=== PATIENT | male | born 1955 | race African-American/Black ===

== ENCOUNTER 2017-12-23 14:15 | Inpatient (IN) ==
[2017-12-23 18:10] LABS: Basophils % 0.6 % (0.0-0.8); Eosinophils # 0.1 10*3/uL (0.0-0.87); Eosinophils % 2.1 % (0.00-10.9); Hematocrit 20.6 VOL% (42.0-52.0); Hemoglobin 6.6 GM/DL (14.0-18.0); Immature Granulocytes % 0.5 %; Immature Granulocytes Absolute 0.03 #; Lymphocytes # 1.6 10*3/uL (1.4-4.0); Lymphocytes % 24.2 % (21.2-54.2); Mean Corpuscular Hemoglobin 28 PG (27-34); Mean Corpuscular Volume 85.8 FL (87-102); Mean Platelet Volume 12.8 FL (9.6-12.0); Monocytes # 0.4 10*3/uL (0.11-0.8); Monocytes % 6.6 % (1.7-12.7); Neutrophils # 4.3 10*3/uL (1.4-7.4); Platelet Count 161 T/CUMM (130-400); Red Cell Distribution Width 14.1 % (9.3-17.3); White Blood Count 6.6 T/CUMM (4-12)
[2017-12-23] MEDS ORDERED: ASPIRIN 325 MG TABLET ONE (18:19)
[2017-12-23] MEDS ORDERED: NITROGLYCERIN SL 0.4 MG TABLET SL ONE (18:27)
[2017-12-23] MEDS ORDERED: MORPHINE 2 MG/1 ML SYRINGE ONE (18:28)
[2017-12-23] MEDS ORDERED: METOPROLOL TARTRATE 5 MG/5 ML VIAL IV ONE (18:30)
[2017-12-23] MEDS ORDERED: ENOXAPARIN 100 MG/ML SYRINGE SUBCUT ONE (18:30)
[2017-12-23 18:43] LABS: Calcium 8.4 MG/DL (8.5-10.1); Osmolality,Calculated 296.5 MOS/KG (273-304); Potassium 3.6 MMOL/L (3.5-5.1)
[2017-12-23 18:48] LABS: CKMB % 1.8 %
[2017-12-23 18:50] LABS: Troponin I Only 1.69 NG/ML (0.00-0.045)
[2017-12-23] MEDS ORDERED: NICOTINE 21 MG/24 HR PATCH TRANSDERM PRN (19:23)
[2017-12-23] MEDS ORDERED: ALBUTEROL 2.5 MG/3 ML NEB RESP TX PRN (19:23)
[2017-12-23] MEDS ORDERED: ACETAMINOPHEN 325 MG TABLET PO PRN (19:23)
[2017-12-23] MEDS ORDERED: NITROGLYCERIN DRIP 50 MG/250 ML BOTTLE IV SCH (19:23)
[2017-12-23] MEDS ORDERED: SODIUM CHLORIDE 0.9% 1,000 ML IV PRN ×2 (19:23→19:39)
[2017-12-23] MEDS ORDERED: GLUCAGON 1 MG VIAL IM PRN (19:23)
[2017-12-23] MEDS ORDERED: ONDANSETRON 4 MG/2 ML VIAL IV PRN (19:23)
[2017-12-23] MEDS ORDERED: DEXTROSE 50% 25 GM/50 ML VIAL IV PRN (19:23)
[2017-12-23] MEDS ORDERED: DOCUSATE SODIUM 100 MG CAPSULE PO PRN (19:23)
[2017-12-23] MEDS ORDERED: FUROSEMIDE 40 MG/4 ML VIAL IV SCH (19:30)
[2017-12-23] MEDS ORDERED: NITROGLYCERIN SL 0.4 MG TABLET SL PRN (19:57)
[2017-12-23 20:07] LABS: INR 1.3; PT Patient Result 13.4 SECS
[2017-12-23] MEDS: LEVOFLOXACIN INJ 250 MG in PREMIX 1 EACH IV SCH (20:40)
[2017-12-23] MEDS: levETIRAcetam 250 MG TABLET PO SCH (20:41)
[2017-12-23] MEDS: METOPROLOL TARTRATE 25 MG TABLET PO SCH (20:41)
[2017-12-23 21:52] LABS: Apearance,Urine Slightly Hazy (Clear); Bacteria,Urine Occasional /HPF (Few); Bilirubin,Urine Negative (Negative); Blood, Urine Small mg/dL (Negative); Glucose,Urine (UA) 50 mg/dL (Negative); Ketones,Urine Negative (Negative); Nitrite,Urine Negative (Negative); Protein,Urine 100 MG/DL; RBC,Urine 6 /HPF (0-4); Squamous Epithelial Cell,Urine Occasional /HPF (0-10); Urine Color Yellow (Yellow); Urine Specific Gravity 1.009 (1.001-1.035); Urine Urobilinogen < 2.0 EU/DL (0.2-1.0); WBC,Urine 3 /HPF (0-6)
[2017-12-24] MEDS: INSULIN REGULAR 100 UNIT/ML SUBCUT SCH ×5 (01:10→22:18)
[2017-12-24] MEDS ORDERED: FUROSEMIDE 40 MG/4 ML VIAL IV ONE (01:30)
[2017-12-24] MEDS: hydrALAZINE 20 MG/1 ML VIAL IV PRN ×2 (01:53→07:36)
[2017-12-24] MEDS: MORPHINE 2 MG/1 ML SYRINGE IV PRN (02:50)
[2017-12-24 06:45] LABS: Basophils % 0.5 % (0.0-0.8); Eosinophils # 0.1 10*3/uL (0.0-0.87); Eosinophils % 1.8 % (0.00-10.9); Hematocrit 27.3 VOL% (42.0-52.0); Hemoglobin 8.8 GM/DL (14.0-18.0); Immature Granulocytes % 0.5 %; Immature Granulocytes Absolute 0.04 #; Lymphocytes # 1.5 10*3/uL (1.4-4.0); Lymphocytes % 19.6 % (21.2-54.2); Mean Corpuscular HGB Conc 32.2 GM/DL (32-36); Mean Corpuscular Hemoglobin 27 PG (27-34); Mean Corpuscular Volume 83.7 FL (87-102); Mean Platelet Volume 12.2 FL (9.6-12.0); Monocytes # 0.5 10*3/uL (0.11-0.8); Monocytes % 6.9 % (1.7-12.7); Neutrophils # 5.6 10*3/uL (1.4-7.4); Neutrophils % 70.7 % (38.7-73.9); Platelet Count 163 T/CUMM (130-400); Red Blood Count 3.26 MC/CUMM (3.8-5.5); Red Cell Distribution Width 14.6 % (9.3-17.3); White Blood Count 7.9 T/CUMM (4-12)
[2017-12-24 07:07] LABS: Lactic Acid 0.6 MMOL/L (0.4-2.0)
[2017-12-24 07:14] LABS: Albumin 3.3 G/DL (3.4-5.0); Bilirubin,Total 0.8 MG/DL (0.2-1.0); Calcium 8.4 MG/DL (8.5-10.1); Osmolality,Calculated 294.4 MOS/KG (273-304); Potassium 3.5 MMOL/L (3.5-5.1); Total Protein 6.8 G/DL (6.4-8.3)
[2017-12-24] MEDS: MULTIVITAMIN (CENTRUM) TABLET PO SCH (08:21)
[2017-12-24] MEDS: traZODone 50 MG TABLET PO SCH (08:21)
[2017-12-24] MEDS: METOPROLOL TARTRATE 25 MG TABLET PO SCH (08:21)
[2017-12-24] MEDS: BICALUTAMIDE 50 MG TABLET PO SCH (08:21)
[2017-12-24] MEDS: levETIRAcetam 250 MG TABLET PO SCH ×2 (08:21→22:17)
[2017-12-24] MEDS: FERROUS SULFATE 325 MG TABLET PO SCH (08:21)
[2017-12-24] MEDS: PANTOPRAZOLE 40 MG TABLET PO SCH (08:21)
[2017-12-24] MEDS: FUROSEMIDE 40 MG/4 ML VIAL IV SCH ×2 (08:24→17:10)
[2017-12-24] MEDS: ENOXAPARIN 80 MG/0.8 ML SYRINGE SUBCUT SCH ×2 (08:26→19:17)
[2017-12-24] MEDS ORDERED: PRAVASTATIN 40 MG TABLET PO SCH (09:00)
[2017-12-24] MEDS ORDERED: ASPIRIN 325 MG TABLET PO SCH (09:00)
[2017-12-24 09:01] LABS: CKMB % 1.8 %
[2017-12-24 09:07] LABS: Troponin I Only 1.91 NG/ML (0.00-0.045)
[2017-12-24] MEDS: ASPIRIN CHEW 81 MG TABLET PO SCH (09:19)
[2017-12-24] MEDS: ISOSORBIDE DINITRATE 20 MG TABLET PO SCH ×3 (09:28→22:17)
[2017-12-24] MEDS: ATORVASTATIN 80 MG TABLET PO SCH (09:28)
[2017-12-24] MEDS: CARVEDILOL 3.125 MG TABLET PO SCH ×2 (09:28→22:18)
[2017-12-24] MEDS: amLODIPine 5 MG TABLET PO SCH (09:28)
[2017-12-24] MEDS: SODIUM CHLORIDE 23.4% CONC INJ 38.5 MEQ, SODIUM BICARB INJ 100 MEQ in STERILE WATER INJ... IV SCH (17:10)
[2017-12-24 19:40] LABS: Apearance,Urine CLEAR (Clear); Bilirubin,Urine Negative (Negative); Blood, Urine Moderate mg/dL (Negative); Glucose,Urine (UA) Negative (Negative); Hyaline Casts,Urine 1 /LPF (0-3); Ketones,Urine Negative (Negative); Nitrite,Urine Negative (Negative); Protein,Urine Negative; RBC,Urine 36 /HPF (0-4); Urine Color Colorless (Yellow); Urine Specific Gravity 1.005 (1.001-1.035); Urine Urobilinogen < 2.0 EU/DL (0.2-1.0); WBC,Urine <1 /HPF (0-6)
[2017-12-25 06:13] LABS: Osmolality,Calculated 293.4 MOS/KG (273-304); Potassium 3.3 MMOL/L (3.5-5.1)
[2017-12-25 06:31] LABS: Basophils % 0.4 % (0.0-0.8); Eosinophils # 0.2 10*3/uL (0.0-0.87); Eosinophils % 2.3 % (0.00-10.9); Hematocrit 26.2 VOL% (42.0-52.0); Hemoglobin 8.5 GM/DL (14.0-18.0); Immature Granulocytes % 0.4 %; Immature Granulocytes Absolute 0.03 #; Lymphocytes # 1.6 10*3/uL (1.4-4.0); Lymphocytes % 21.4 % (21.2-54.2); Mean Corpuscular HGB Conc 32.4 GM/DL (32-36); Mean Corpuscular Hemoglobin 28 PG (27-34); Mean Corpuscular Volume 86.2 FL (87-102); Mean Platelet Volume 12.8 FL (9.6-12.0); Monocytes # 0.5 10*3/uL (0.11-0.8); Monocytes % 6.9 % (1.7-12.7); Neutrophils % 68.6 % (38.7-73.9); Platelet Count 161 T/CUMM (130-400); Red Blood Count 3.04 MC/CUMM (3.8-5.5); Red Cell Distribution Width 14.7 % (9.3-17.3); White Blood Count 7.2 T/CUMM (4-12)
[2017-12-25] MEDS: INSULIN REGULAR 100 UNIT/ML SUBCUT SCH ×4 (08:48→21:34)
[2017-12-25] MEDS: ISOSORBIDE DINITRATE 20 MG TABLET PO SCH ×3 (10:01→21:33)
[2017-12-25] MEDS: PANTOPRAZOLE 40 MG TABLET PO SCH (10:01)
[2017-12-25] MEDS: FERROUS SULFATE 325 MG TABLET PO SCH (10:02)
[2017-12-25] MEDS: amLODIPine 5 MG TABLET PO SCH (10:02)
[2017-12-25] MEDS: ASPIRIN CHEW 81 MG TABLET PO SCH (10:02)
[2017-12-25] MEDS: MULTIVITAMIN (CENTRUM) TABLET PO SCH (10:03)
[2017-12-25] MEDS: BICALUTAMIDE 50 MG TABLET PO SCH (10:03)
[2017-12-25] MEDS: levETIRAcetam 250 MG TABLET PO SCH ×2 (10:03→21:33)
[2017-12-25] MEDS: ATORVASTATIN 80 MG TABLET PO SCH (10:03)
[2017-12-25] MEDS: NICOTINE 14 MG/24 HR PATCH TRANSDERM SCH (10:04)
[2017-12-25] MEDS: traZODone 50 MG TABLET PO SCH (10:04)
[2017-12-25] MEDS: ENOXAPARIN 80 MG/0.8 ML SYRINGE SUBCUT SCH ×2 (10:05→21:32)
[2017-12-25] MEDS: FUROSEMIDE 40 MG/4 ML VIAL IV SCH ×2 (10:06→15:18)
[2017-12-25] MEDS: SODIUM CHLORIDE 23.4% CONC INJ 38.5 MEQ, SODIUM BICARB INJ 100 MEQ in STERILE WATER INJ... IV SCH (10:12)
[2017-12-25] MEDS: hydrALAZINE 25 MG TABLET PO SCH ×2 (14:37→21:33)
[2017-12-25] MEDS: LEVOFLOXACIN INJ 250 MG in PREMIX 1 EACH IV SCH (21:31)
[2017-12-25] MEDS: CARVEDILOL 6.25 MG TABLET PO SCH (21:34)
[2017-12-25] MEDS: CARVEDILOL 3.125 MG TABLET PO SCH (21:35)
[2017-12-26] MEDS: SODIUM CHLORIDE 23.4% CONC INJ 38.5 MEQ, SODIUM BICARB INJ 100 MEQ in STERILE WATER INJ... IV SCH ×2 (04:00→21:18)
[2017-12-26 04:47] LABS: Basophils % 0.4 % (0.0-0.8); Eosinophils # 0.1 10*3/uL (0.0-0.87); Eosinophils % 1.6 % (0.00-10.9); Hematocrit 24.2 VOL% (42.0-52.0); Hemoglobin 7.8 GM/DL (14.0-18.0); Immature Granulocytes % 0.5 %; Immature Granulocytes Absolute 0.04 #; Lymphocytes # 1.2 10*3/uL (1.4-4.0); Lymphocytes % 15.8 % (21.2-54.2); Mean Corpuscular HGB Conc 32.2 GM/DL (32-36); Mean Corpuscular Hemoglobin 27 PG (27-34); Mean Corpuscular Volume 84.9 FL (87-102); Mean Platelet Volume 12.2 FL (9.6-12.0); Monocytes # 0.7 10*3/uL (0.11-0.8); Monocytes % 9.6 % (1.7-12.7); Neutrophils # 5.3 10*3/uL (1.4-7.4); Neutrophils % 72.1 % (38.7-73.9); Platelet Count 151 T/CUMM (130-400); Red Blood Count 2.85 MC/CUMM (3.8-5.5); Red Cell Distribution Width 14.7 % (9.3-17.3); White Blood Count 7.4 T/CUMM (4-12)
[2017-12-26 05:12] LABS: Osmolality,Calculated 287.7 MOS/KG (273-304); Potassium 3.3 MMOL/L (3.5-5.1)
[2017-12-26] MEDS: INSULIN REGULAR 100 UNIT/ML SUBCUT SCH ×4 (08:49→21:19)
[2017-12-26] MEDS: FERROUS SULFATE 325 MG TABLET PO SCH (08:50)
[2017-12-26] MEDS: levETIRAcetam 250 MG TABLET PO SCH ×2 (08:50→21:09)
[2017-12-26] MEDS: BICALUTAMIDE 50 MG TABLET PO SCH (08:50)
[2017-12-26] MEDS: hydrALAZINE 25 MG TABLET PO SCH ×3 (08:51→21:09)
[2017-12-26] MEDS: ATORVASTATIN 80 MG TABLET PO SCH ×2 (08:51→21:09)
[2017-12-26] MEDS: CARVEDILOL 6.25 MG TABLET PO SCH (08:51)
[2017-12-26] MEDS: traZODone 50 MG TABLET PO SCH (08:51)
[2017-12-26] MEDS: MULTIVITAMIN (CENTRUM) TABLET PO SCH (08:51)
[2017-12-26] MEDS: amLODIPine 5 MG TABLET PO SCH (08:51)
[2017-12-26] MEDS: PANTOPRAZOLE 40 MG TABLET PO SCH (08:51)
[2017-12-26] MEDS: ISOSORBIDE DINITRATE 20 MG TABLET PO SCH ×3 (08:51→21:09)
[2017-12-26] MEDS: ASPIRIN CHEW 81 MG TABLET PO SCH (08:51)
[2017-12-26] MEDS: NICOTINE 14 MG/24 HR PATCH TRANSDERM SCH (08:53)
[2017-12-26] MEDS: ENOXAPARIN 80 MG/0.8 ML SYRINGE SUBCUT SCH (08:54)
[2017-12-26] MEDS: FUROSEMIDE 40 MG/4 ML VIAL IV SCH ×2 (08:57→15:47)
[2017-12-26] MEDS ORDERED: SODIUM CHLORIDE 0.9% 1,000 ML IV PRN (12:15)
[2017-12-26] MEDS: TAMSULOSIN 0.4 MG CAPSULE PO SCH (21:09)
[2017-12-26] MEDS: CARVEDILOL 12.5 MG TABLET PO SCH (21:09)
[2017-12-26 23:53] LABS: Apearance,Urine CLEAR (Clear); Bacteria,Urine Occasional /HPF (Few); Bilirubin,Urine Negative (Negative); Blood, Urine Small mg/dL (Negative); Glucose,Urine (UA) Negative (Negative); Ketones,Urine Negative (Negative); Nitrite,Urine Negative (Negative); Protein,Urine 30 MG/DL; RBC,Urine 6 /HPF (0-4); Urine Color Straw (Yellow); Urine Specific Gravity 1.004 (1.001-1.035); Urine Urobilinogen < 2.0 EU/DL (0.2-1.0); WBC,Urine 1 /HPF (0-6)
[2017-12-27 05:16] LABS: Basophils % 0.3 % (0.0-0.8); Eosinophils # 0.1 10*3/uL (0.0-0.87); Hematocrit 25.8 VOL% (42.0-52.0); Hemoglobin 8.8 GM/DL (14.0-18.0); Immature Granulocytes % 0.4 %; Immature Granulocytes Absolute 0.03 #; Lymphocytes % 13.6 % (21.2-54.2); Mean Corpuscular HGB Conc 34.1 GM/DL (32-36); Mean Corpuscular Hemoglobin 29 PG (27-34); Mean Corpuscular Volume 83.5 FL (87-102); Mean Platelet Volume 12.5 FL (9.6-12.0); Monocytes # 0.7 10*3/uL (0.11-0.8); Monocytes % 9.3 % (1.7-12.7); Neutrophils # 5.3 10*3/uL (1.4-7.4); Neutrophils % 74.4 % (38.7-73.9); Platelet Count 135 T/CUMM (130-400); Red Blood Count 3.09 MC/CUMM (3.8-5.5); Red Cell Distribution Width 14.6 % (9.3-17.3); White Blood Count 7.1 T/CUMM (4-12)
[2017-12-27 05:50] LABS: Risk Ratio 3.94; VLDL CHOLESTEROL 16.8 MG/DL
[2017-12-27 05:56] LABS: % Iron Saturation 7.9 % (18-50); Calcium 8.4 MG/DL (8.5-10.1); Ferritin 329.2 ng/ml (26-388); Osmolality,Calculated 287.7 MOS/KG (273-304); Potassium 3.4 MMOL/L (3.5-5.1)
[2017-12-27] MEDS: INSULIN REGULAR 100 UNIT/ML SUBCUT SCH ×4 (08:37→21:02)
[2017-12-27] MEDS: levETIRAcetam 250 MG TABLET PO SCH ×2 (08:51→21:39)
[2017-12-27] MEDS: FERROUS SULFATE 325 MG TABLET PO SCH (08:52)
[2017-12-27] MEDS: amLODIPine 5 MG TABLET PO SCH (08:52)
[2017-12-27] MEDS: ISOSORBIDE DINITRATE 20 MG TABLET PO SCH ×3 (08:52→21:38)
[2017-12-27] MEDS: BICALUTAMIDE 50 MG TABLET PO SCH (08:52)
[2017-12-27] MEDS: ASPIRIN CHEW 81 MG TABLET PO SCH (08:52)
[2017-12-27] MEDS: PANTOPRAZOLE 40 MG TABLET PO SCH (08:52)
[2017-12-27] MEDS: hydrALAZINE 25 MG TABLET PO SCH ×3 (08:52→21:39)
[2017-12-27] MEDS: traZODone 50 MG TABLET PO SCH (08:52)
[2017-12-27] MEDS: CARVEDILOL 12.5 MG TABLET PO SCH ×2 (08:52→21:38)
[2017-12-27] MEDS: MULTIVITAMIN (CENTRUM) TABLET PO SCH (08:52)
[2017-12-27] MEDS: FUROSEMIDE 40 MG/4 ML VIAL IV SCH ×2 (08:54→15:07)
[2017-12-27] MEDS: NICOTINE 14 MG/24 HR PATCH TRANSDERM SCH (09:06)
[2017-12-27] MEDS: SODIUM CHLORIDE 23.4% CONC INJ 38.5 MEQ, SODIUM BICARB INJ 100 MEQ in STERILE WATER INJ... IV SCH ×2 (13:45→16:31)
[2017-12-27] MEDS: POTASSIUM CHLORIDE 20 MEQ TABLET PO PRN ×3 (15:07→21:38)
[2017-12-27] MEDS: MORPHINE 2 MG/1 ML SYRINGE IV PRN (21:37)
[2017-12-27] MEDS: LEVOFLOXACIN INJ 250 MG in PREMIX 1 EACH IV SCH (21:37)
[2017-12-27] MEDS: ATORVASTATIN 80 MG TABLET PO SCH (21:38)
[2017-12-27] MEDS: TAMSULOSIN 0.4 MG CAPSULE PO SCH (21:38)
[2017-12-28 05:06] LABS: Basophils % 0.4 % (0.0-0.8); Eosinophils # 0.2 10*3/uL (0.0-0.87); Hematocrit 26.9 VOL% (42.0-52.0); Hemoglobin 8.7 GM/DL (14.0-18.0); Immature Granulocytes % 0.3 %; Immature Granulocytes Absolute 0.02 #; Lymphocytes % 12.7 % (21.2-54.2); Mean Corpuscular HGB Conc 32.3 GM/DL (32-36); Mean Corpuscular Hemoglobin 28 PG (27-34); Mean Corpuscular Volume 87.3 FL (87-102); Mean Platelet Volume 12.8 FL (9.6-12.0); Monocytes # 0.7 10*3/uL (0.11-0.8); Monocytes % 9.8 % (1.7-12.7); Neutrophils # 5.7 10*3/uL (1.4-7.4); Neutrophils % 74.8 % (38.7-73.9); Platelet Count 123 T/CUMM (130-400); Red Blood Count 3.08 MC/CUMM (3.8-5.5); Red Cell Distribution Width 14.7 % (9.3-17.3); White Blood Count 7.6 T/CUMM (4-12)
[2017-12-28 05:21] LABS: Calcium 8.5 MG/DL (8.5-10.1); Osmolality,Calculated 291.4 MOS/KG (273-304); Potassium 4.2 MMOL/L (3.5-5.1)
[2017-12-28] MEDS: FUROSEMIDE 40 MG/4 ML VIAL IV SCH (08:28)
[2017-12-28] MEDS: ASPIRIN CHEW 81 MG TABLET PO SCH (08:29)
[2017-12-28] MEDS: NICOTINE 14 MG/24 HR PATCH TRANSDERM SCH (08:29)
[2017-12-28] MEDS: ISOSORBIDE DINITRATE 20 MG TABLET PO SCH ×2 (08:29→15:19)
[2017-12-28] MEDS: hydrALAZINE 25 MG TABLET PO SCH ×2 (08:29→15:19)
[2017-12-28] MEDS: levETIRAcetam 250 MG TABLET PO SCH (08:29)
[2017-12-28] MEDS: BICALUTAMIDE 50 MG TABLET PO SCH (08:29)
[2017-12-28] MEDS: amLODIPine 5 MG TABLET PO SCH (08:30)
[2017-12-28] MEDS: PANTOPRAZOLE 40 MG TABLET PO SCH (08:30)
[2017-12-28] MEDS: FERROUS SULFATE 325 MG TABLET PO SCH (08:30)
[2017-12-28] MEDS: MULTIVITAMIN (CENTRUM) TABLET PO SCH (08:30)
[2017-12-28] MEDS: CARVEDILOL 12.5 MG TABLET PO SCH (08:30)
[2017-12-28] MEDS: traZODone 50 MG TABLET PO SCH (08:30)
[2017-12-28] MEDS: SODIUM CHLORIDE 23.4% CONC INJ 38.5 MEQ, SODIUM BICARB INJ 100 MEQ in STERILE WATER INJ... IV SCH (11:05)
[2017-12-28 11:58] VITALS: BP 117/72
[2017-12-28] MEDS: INSULIN REGULAR 100 UNIT/ML SUBCUT SCH (12:53)
== END 2017-12-28 16:30 | disposition home or self-care (01) | DRG 280 ==
LOC: N.5E 16:38 → SUATTDRO 16:38 → N.CC 19:10 → N.TELES 12-25 18:11
PROVIDERS: ADMIT Internal Medicine; ATTEND Internal Medicine

== ENCOUNTER 2019-03-13 00:20 | Inpatient (IN) ==
[2019-03-13] MEDS ORDERED: LORazepam 2 MG/1 ML VIAL ONE (02:20)
[2019-03-13] MEDS ORDERED: LORazepam 2 MG/1 ML VIAL IV ONE (02:20)
[2019-03-13 02:51] LABS: Apearance,Urine CLEAR (Clear); Bilirubin,Urine Negative (Negative); Blood, Urine Large mg/dL (Negative); Glucose,Urine (UA) 50 mg/dL (Negative); Ketones,Urine 5 mg/dL (Negative); Mucus,Urine Occasional /LPF (Occasional); Nitrite,Urine Negative (Negative); Protein,Urine >=500 MG/DL; RBC,Urine 893 /HPF (0-4); Squamous Epithelial Cell,Urine Occasional /HPF (0-10); Urine Color Yellow (Yellow); Urine Specific Gravity 1.012 (1.001-1.035); Urine Urobilinogen < 2.0 EU/DL (0.2-1.0)
[2019-03-13 02:54] LABS: Barbiturates Screen,Urine Negative (Negative); Benzodiazepines Screen,Urine Negative (Negative); Cannabinoid Screen,Urine Negative (Negative); Opiate Screen,Urine Negative (Negative); Phencyclidine Screen,Urine Negative (Negative)
[2019-03-13 03:02] LABS: INR 1.1; PT Patient Result 11.4 SECS; Partial Thromboplastin Time 32.8 SECS (0-40)
[2019-03-13 03:04] LABS: Basophils % 0.4 % (0.0-0.8); Eosinophils # 0.2 10*3/uL (0.0-0.87); Eosinophils % 1.8 % (0.00-10.9); Hematocrit 33.4 VOL% (42.0-52.0); Immature Granulocytes % 0.4 %; Immature Granulocytes Absolute 0.04 #; Lymphocytes # 1.3 10*3/uL (1.4-4.0); Lymphocytes % 13.9 % (21.2-54.2); Mean Corpuscular HGB Conc 29.9 GM/DL (32-36); Mean Corpuscular Volume 91.3 FL (87-102); Mean Platelet Volume 12.4 FL (9.6-12.0); Monocytes % 4.5 % (1.7-12.7); Platelet Count 142 T/CUMM (130-400); Red Blood Count 3.66 MC/CUMM (3.8-5.5); Red Cell Distribution Width 14.7 % (9.3-17.3); White Blood Count 9.3 T/CUMM (4-12)
[2019-03-13] MEDS ORDERED: ALBUTEROL 2.5 MG/3 ML NEB RESP TX PRN (03:04)
[2019-03-13 03:10] LABS: Alanine Aminotransferase 17 U/L (16-61); Albumin 2.6 G/DL (3.4-5.0); Alkaline Phosphatase 173 U/L (45-117); Aspartate Amino Transferase 18 U/L (0-37); Bilirubin,Total < 0.39 MG/DL (0.2-1.0); Blood Urea Nitrogen 59 MG/DL (7-18); CKMB % 1.8 %; Calcium 8.9 MG/DL (8.5-10.1); Glucose 108 MG/DL (74-106); Osmolality,Calculated 303.8 MOS/KG (273-304); Total Protein 8.2 G/DL (6.4-8.3)
[2019-03-13 03:11] LABS: Troponin I 0.064 NG/ML (0.00-0.045)
[2019-03-13] MEDS ORDERED: DEXTROSE 50% 25 GM/50 ML VIAL IV PRN (04:13)
[2019-03-13] MEDS ORDERED: GLUCAGON 1 MG VIAL IM PRN (04:13)
[2019-03-13] MEDS ORDERED: cloNIDine 0.2 MG/24 HR PATCH TRANSDERM SCH ×2 (04:45→09:00)
[2019-03-13] MEDS: INSULIN REGULAR 100 UNIT/ML SUBCUT SCH ×3 (06:31→18:42)
[2019-03-13] MEDS ORDERED: INSULIN REGULAR 100 UNIT/ML SUBCUT SCH (07:30)
[2019-03-13] MEDS: hydrALAZINE 20 MG/1 ML VIAL IV SCH ×2 (10:45→18:37)
[2019-03-13 11:34] LABS: Hepatitis B Core IgM Quant < 0.05 Index; Hepatitis B Surface Ag Quant < 0.10 Index; Hepatitis B Surface Ag Result Negative (Negative); Hepatitis C Virus Ab Quant 0.12 Index; Hepatitis C Virus Ab Result Negative (Negative)
[2019-03-13] MEDS ORDERED: ceFAZolin 1,000 MG in SYRINGE 1 EACH IV ONE (13:24)
[2019-03-13] MEDS ORDERED: HEPARIN 5,000 UNIT/1 ML VIAL ONE (15:12)
[2019-03-13] MEDS ORDERED: LIDOCAINE 1% 20 ML VIAL ONE (15:13)
[2019-03-13] MEDS ORDERED: BUPIVACAINE MPF 0.25% /EPI 30 ML VIAL ONE (15:13)
[2019-03-13] MEDS ORDERED: PROPOFOL 200 MG/20 ML VIAL IV ONE (16:58)
[2019-03-13] MEDS ORDERED: PHENYLEPHRINE 1 MG/10 ML SYRINGE IV ONE (16:58)
[2019-03-13] MEDS ORDERED: SEVOFLURANE 1 UNIT/15 MINUTE INH ONE (16:58)
[2019-03-13] MEDS ORDERED: fentaNYL 100 MCG/2 ML VIAL ONE (16:58)
[2019-03-13] MEDS ORDERED: LABETALOL 20 MG/4 ML SYRINGE IV PRN (18:52)
[2019-03-13] MEDS ORDERED: HEPARIN 10,000 UNIT/10 ML VIAL IV PRN (18:53)
[2019-03-13] MEDS: LORazepam 2 MG/1 ML VIAL IV PRN (19:22)
[2019-03-14] MEDS: INSULIN REGULAR 100 UNIT/ML SUBCUT SCH ×4 (00:39→17:42)
[2019-03-14] MEDS: LORazepam 2 MG/1 ML VIAL IV PRN ×5 (00:55→22:26)
[2019-03-14 03:02] LABS: Basophils # 0.1 10*3/uL (0.0-0.2); Basophils % 0.5 % (0.0-0.8); Eosinophils # 0.1 10*3/uL (0.0-0.87); Eosinophils % 0.6 % (0.00-10.9); Hematocrit 34.5 VOL% (42.0-52.0); Hemoglobin 10.6 GM/DL (14.0-18.0); Immature Granulocytes % 0.4 %; Immature Granulocytes Absolute 0.04 #; Lymphocytes # 1.2 10*3/uL (1.4-4.0); Lymphocytes % 11.3 % (21.2-54.2); Mean Corpuscular HGB Conc 30.7 GM/DL (32-36); Mean Corpuscular Volume 88.7 FL (87-102); Mean Platelet Volume 12.1 FL (9.6-12.0); Monocytes % 8.1 % (1.7-12.7); Neutrophils % 79.1 % (38.7-73.9); Platelet Count 150 T/CUMM (130-400); Red Blood Count 3.89 MC/CUMM (3.8-5.5); Red Cell Distribution Width 14.9 % (9.3-17.3); White Blood Count 10.5 T/CUMM (4-12)
[2019-03-14 03:19] LABS: Calcium 9.4 MG/DL (8.5-10.1); Osmolality,Calculated 286.7 MOS/KG (273-304)
[2019-03-14] MEDS: hydrALAZINE 20 MG/1 ML VIAL IV SCH ×3 (04:12→18:13)
[2019-03-14] MEDS ORDERED: LORazepam 2 MG/1 ML VIAL ONE (18:06)
[2019-03-15] MEDS: INSULIN REGULAR 100 UNIT/ML SUBCUT SCH ×4 (00:42→17:06)
[2019-03-15] MEDS: hydrALAZINE 20 MG/1 ML VIAL IV SCH ×3 (02:28→17:31)
[2019-03-15 04:36] LABS: Basophils % 0.4 % (0.0-0.8); Eosinophils # 0.1 10*3/uL (0.0-0.87); Hematocrit 35.5 VOL% (42.0-52.0); Hemoglobin 11.2 GM/DL (14.0-18.0); Immature Granulocytes % 0.2 %; Immature Granulocytes Absolute 0.02 #; Lymphocytes # 1.6 10*3/uL (1.4-4.0); Lymphocytes % 16.6 % (21.2-54.2); Mean Corpuscular HGB Conc 31.5 GM/DL (32-36); Mean Corpuscular Volume 88.1 FL (87-102); Mean Platelet Volume 12.7 FL (9.6-12.0); Monocytes % 9.9 % (1.7-12.7); Neutrophils % 71.9 % (38.7-73.9); Platelet Count 164 T/CUMM (130-400); Red Blood Count 4.03 MC/CUMM (3.8-5.5); Red Cell Distribution Width 14.5 % (9.3-17.3); White Blood Count 9.9 T/CUMM (4-12)
[2019-03-15 04:52] LABS: Calcium 9.9 MG/DL (8.5-10.1); Osmolality,Calculated 276.8 MOS/KG (273-304)
[2019-03-15] MEDS ORDERED: BENZOCAINE 20% ORAL GEL 11.9 GM TUBE TOP PRN (16:15)
[2019-03-15] MEDS: LORazepam 2 MG/1 ML VIAL IV PRN (22:20)
[2019-03-16] MEDS: hydrALAZINE 20 MG/1 ML VIAL IV SCH ×3 (03:11→17:46)
[2019-03-16] MEDS: INSULIN REGULAR 100 UNIT/ML SUBCUT SCH ×4 (07:58→17:32)
[2019-03-16] MEDS ORDERED: ACETAMINOPHEN 325 MG TABLET PO PRN (15:36)
[2019-03-16] MEDS: ACETAMINOPHEN 325 MG TABLET PO PRN (23:11)
[2019-03-17] MEDS: INSULIN REGULAR 100 UNIT/ML SUBCUT SCH ×4 (00:57→17:15)
[2019-03-17] MEDS: hydrALAZINE 20 MG/1 ML VIAL IV SCH ×3 (02:54→17:52)
[2019-03-18] MEDS: ACETAMINOPHEN 325 MG TABLET PO PRN ×2 (00:20→09:17)
[2019-03-18] MEDS: INSULIN REGULAR 100 UNIT/ML SUBCUT SCH ×4 (00:44→18:06)
[2019-03-18] MEDS: hydrALAZINE 20 MG/1 ML VIAL IV SCH ×4 (04:19→18:02)
[2019-03-18] MEDS: CARVEDILOL 12.5 MG TABLET PO SCH ×2 (09:02→21:10)
[2019-03-18] MEDS: ONDANSETRON 4 MG/2 ML VIAL IV PRN ×2 (09:17→15:37)
[2019-03-18] MEDS: ASPIRIN CHEW 81 MG TABLET PO SCH (11:20)
[2019-03-18] MEDS ORDERED: TAMSULOSIN 0.4 MG CAPSULE PO SCH (21:00)
[2019-03-18] MEDS ORDERED: ATORVASTATIN 80 MG TABLET PO SCH (21:00)
[2019-03-19] MEDS: INSULIN REGULAR 100 UNIT/ML SUBCUT SCH ×3 (01:34→14:52)
[2019-03-19] MEDS: hydrALAZINE 20 MG/1 ML VIAL IV SCH ×2 (02:30→14:51)
[2019-03-19 05:43] LABS: Basophils % 0.3 % (0.0-0.8); Eosinophils # 0.4 10*3/uL (0.0-0.87); Hematocrit 31.3 VOL% (42.0-52.0); Hemoglobin 9.8 GM/DL (14.0-18.0); Immature Granulocytes % 0.4 %; Immature Granulocytes Absolute 0.04 #; Lymphocytes # 1.8 10*3/uL (1.4-4.0); Lymphocytes % 19.3 % (21.2-54.2); Mean Corpuscular HGB Conc 31.3 GM/DL (32-36); Mean Corpuscular Volume 88.9 FL (87-102); Mean Platelet Volume 12.2 FL (9.6-12.0); Monocytes % 11.7 % (1.7-12.7); Neutrophils % 64.3 % (38.7-73.9); Platelet Count 164 T/CUMM (130-400); Red Blood Count 3.52 MC/CUMM (3.8-5.5); Red Cell Distribution Width 13.9 % (9.3-17.3); White Blood Count 9.2 T/CUMM (4-12)
[2019-03-19 06:16] LABS: Calcium 9.1 MG/DL (8.5-10.1); Osmolality,Calculated 268.8 MOS/KG (273-304)
[2019-03-19] MEDS: CARVEDILOL 12.5 MG TABLET PO SCH (14:50)
[2019-03-19] MEDS: ASPIRIN CHEW 81 MG TABLET PO SCH (14:50)
[2019-03-19 16:30] VITALS: BP 130/74
== END 2019-03-19 19:20 | disposition home health service (06) | DRG 673 ==
LOC: SUATTDRO 01:36 → N.CC 01:36 → N.5E 03-15 07:01
PROVIDERS: ADMIT Internal Medicine; ATTEND Internal Medicine

== ENCOUNTER 2020-03-14 03:29 | Inpatient (IN) ==
[2020-03-14] MEDS ORDERED: NITROGLYCERIN DRIP 50 MG/250 ML BOTTLE IV PRN (04:40)
[2020-03-14] MEDS ORDERED: hydrALAZINE 20 MG/1 ML VIAL IV ONE (04:50)
[2020-03-14] MEDS ORDERED: hydrALAZINE 20 MG/1 ML VIAL ONE (04:53)
[2020-03-14] MEDS ORDERED: SIMETHICONE CHEW 125 MG TABLET PO PRN (05:38)
[2020-03-14] MEDS ORDERED: ACETAMINOPHEN 325 MG TABLET PO PRN (05:38)
[2020-03-14] MEDS ORDERED: ONDANSETRON 4 MG/2 ML VIAL IV PRN (05:38)
[2020-03-14] MEDS ORDERED: ALBUTEROL 2.5 MG/3 ML NEB RESP TX PRN (05:38)
[2020-03-14] MEDS ORDERED: hydrALAZINE 20 MG/1 ML VIAL IV PRN (05:51)
[2020-03-14] MEDS ORDERED: METOPROLOL TARTRATE 5 MG/5 ML VIAL IV ONE ×2 (05:52→06:19)
[2020-03-14] MEDS ORDERED: SEVELAMER CARBONATE 800 MG TABLET PO SCH (06:00)
[2020-03-14] MEDS: ISOSORBIDE DINITRATE 20 MG TABLET PO SCH ×3 (06:17→21:50)
[2020-03-14 06:26] LABS: Basophils % 0.3 % (0.0-0.8); Eosinophils % 0.2 % (0.00-10.9); Hematocrit 25.2 VOL% (42.0-52.0); Hemoglobin 7.9 GM/DL (14.0-18.0); Immature Granulocytes % 0.5 %; Immature Granulocytes Absolute 0.06 #; Lymphocytes # 1.2 10*3/uL (1.4-4.0); Mean Corpuscular HGB Conc 31.3 GM/DL (32-36); Mean Corpuscular Volume 87.5 FL (87-102); Mean Platelet Volume 11.3 FL (9.6-12.0); Monocytes % 5.6 % (1.7-12.7); Neutrophils % 83.4 % (38.7-73.9); Platelet Count 156 T/CUMM (130-400); Red Blood Count 2.88 MC/CUMM (3.8-5.5); Red Cell Distribution Width 16.3 % (9.3-17.3); White Blood Count 11.8 T/CUMM (4-12)
[2020-03-14 06:51] LABS: Calcium 9.1 MG/DL (8.5-10.1); Osmolality,Calculated 272.7 MOS/KG (273-304)
[2020-03-14] MEDS: ALBUTEROL 2.5 MG/3 ML NEB RESP TX SCH ×3 (07:53→19:57)
[2020-03-14] MEDS: SEVELAMER CARBONATE 800 MG TABLET PO SCH ×3 (08:02→17:27)
[2020-03-14] MEDS: ENOXAPARIN 30 MG/0.3 ML SYRINGE SUBCUT SCH (08:02)
[2020-03-14] MEDS: carvediloL 25 MG TABLET PO SCH ×2 (08:02→17:26)
[2020-03-14] MEDS: ASPIRIN CHEW 81 MG TABLET PO SCH (08:02)
[2020-03-14] MEDS: ATORVASTATIN 80 MG TABLET PO SCH (08:03)
[2020-03-14] MEDS: TAMSULOSIN 0.4 MG CAPSULE PO SCH (08:03)
[2020-03-14] MEDS: AZITHROMYCIN 250 MG TABLET PO SCH (08:03)
[2020-03-14] MEDS: CINACALCET 30 MG TABLET PO SCH (08:03)
[2020-03-14] MEDS: PANTOPRAZOLE 40 MG TABLET PO SCH (08:03)
[2020-03-14] MEDS: amLODIPine 10 MG TABLET PO SCH (08:03)
[2020-03-14] MEDS: cefTRIAXone 1,000 MG in SYRINGE 1 EACH IV SCH (08:05)
[2020-03-14] MEDS: DOCUSATE SODIUM 100 MG CAPSULE PO SCH ×2 (08:23→21:49)
[2020-03-14] MEDS: levETIRAcetam 500 MG TABLET PO SCH ×2 (08:23→21:50)
[2020-03-14] MEDS: traMADol 50 MG TABLET PO SCH ×2 (08:23→21:50)
[2020-03-14] MEDS: hydrALAZINE 25 MG TABLET PO SCH ×3 (08:23→21:48)
[2020-03-14] MEDS ORDERED: cloNIDine 0.2 MG/24 HR PATCH TRANSDERM SCH (09:00)
[2020-03-14] MEDS ORDERED: POTASSIUM CHLORIDE 20 MEQ TABLET PO ONE (09:15)
[2020-03-14] MEDS: ASCORBIC ACID 500 MG TABLET PO SCH ×2 (13:54→21:49)
[2020-03-14] MEDS ORDERED: hydrOXYzine HCL 25 MG TABLET PO SCH (21:00)
[2020-03-14] MEDS ORDERED: GABAPENTIN 100 MG CAPSULE PO SCH (21:00)
[2020-03-15] MEDS: ALBUTEROL 2.5 MG/3 ML NEB RESP TX SCH ×2 (00:46→08:56)
[2020-03-15 04:04] LABS: Basophils % 0.4 % (0.0-0.8); Eosinophils # 0.2 10*3/uL (0.0-0.87); Eosinophils % 3.2 % (0.00-10.9); Hemoglobin 6.5 GM/DL (14.0-18.0); Immature Granulocytes % 0.2 %; Immature Granulocytes Absolute 0.01 #; Lymphocytes # 1.7 10*3/uL (1.4-4.0); Lymphocytes % 33.3 % (21.2-54.2); Mean Corpuscular Volume 88.6 FL (87-102); Mean Platelet Volume 11.8 FL (9.6-12.0); Monocytes % 8.6 % (1.7-12.7); Neutrophils % 54.3 % (38.7-73.9); Platelet Count 119 T/CUMM (130-400); Red Blood Count 2.37 MC/CUMM (3.8-5.5); Red Cell Distribution Width 16.5 % (9.3-17.3)
[2020-03-15 04:27] LABS: Osmolality,Calculated 276.8 MOS/KG (273-304); Risk Ratio 2.07; VLDL CHOLESTEROL 15.4 MG/DL
[2020-03-15 05:07] LABS: Anisocytosis 1+; Ovalocytes 1+; Platelet Estimate Adequate
[2020-03-15] MEDS: ISOSORBIDE DINITRATE 20 MG TABLET PO SCH (06:06)
[2020-03-15] MEDS: SEVELAMER CARBONATE 800 MG TABLET PO SCH (08:37)
[2020-03-15] MEDS ORDERED: IRON SUCROSE 300 MG in SODIUM CHLORIDE 0.9% 100 ML IV ONE (09:07)
[2020-03-15] MEDS: hydrALAZINE 25 MG TABLET PO SCH (11:02)
[2020-03-15] MEDS: carvediloL 25 MG TABLET PO SCH (11:02)
[2020-03-15] MEDS: amLODIPine 10 MG TABLET PO SCH (11:03)
[2020-03-15] MEDS: TAMSULOSIN 0.4 MG CAPSULE PO SCH (11:03)
[2020-03-15] MEDS: levETIRAcetam 500 MG TABLET PO SCH (11:03)
[2020-03-15] MEDS: ATORVASTATIN 80 MG TABLET PO SCH (11:03)
[2020-03-15] MEDS: DOCUSATE SODIUM 100 MG CAPSULE PO SCH (11:03)
[2020-03-15] MEDS: ASPIRIN CHEW 81 MG TABLET PO SCH (11:03)
[2020-03-15] MEDS: ASCORBIC ACID 500 MG TABLET PO SCH (11:04)
[2020-03-15] MEDS: CINACALCET 30 MG TABLET PO SCH (11:04)
[2020-03-15] MEDS: PANTOPRAZOLE 40 MG TABLET PO SCH (11:04)
[2020-03-15] MEDS: traMADol 50 MG TABLET PO SCH (11:04)
[2020-03-15] MEDS: AZITHROMYCIN 250 MG TABLET PO SCH (11:04)
[2020-03-15] MEDS: ENOXAPARIN 30 MG/0.3 ML SYRINGE SUBCUT SCH (11:05)
[2020-03-15] MEDS: cefTRIAXone 1,000 MG in SYRINGE 1 EACH IV SCH (11:05)
== END 2020-03-15 10:40 | disposition home or self-care (01) | DRG 291 ==
LOC: SUATTDRO 04:34 → N.ICU 04:34
PROVIDERS: ADMIT Internal Medicine Cardiovascular Disease; ATTEND Internal Medicine

== ENCOUNTER 2020-05-22 05:42 | Inpatient (IN) ==
[2020-05-16 12:15] LABS: Basophils # 0.1 10*3/uL (0.0-0.2); Basophils % 0.9 % (0.0-0.8); Eosinophils # 0.2 10*3/uL (0.0-0.87); Eosinophils % 4.1 % (0.00-10.9); Hematocrit 36.1 VOL% (42.0-52.0); Hemoglobin 10.9 GM/DL (14.0-18.0); Immature Granulocytes % 0.2 %; Immature Granulocytes Absolute 0.01 #; Lymphocytes # 2.2 10*3/uL (1.4-4.0); Lymphocytes % 41.2 % (21.2-54.2); Mean Corpuscular HGB Conc 30.2 GM/DL (32-36); Mean Corpuscular Volume 91.2 FL (87-102); Mean Platelet Volume 10.5 FL (9.6-12.0); Monocytes % 8.8 % (1.7-12.7); Neutrophils % 44.8 % (38.7-73.9); Platelet Count 177 T/CUMM (130-400); Red Blood Count 3.96 MC/CUMM (3.8-5.5); Red Cell Distribution Width 16.7 % (9.3-17.3); White Blood Count 5.3 T/CUMM (4-12)
[2020-05-16 12:46] LABS: Albumin 3.1 G/DL (3.4-5.0); Bilirubin,Total 0.9 MG/DL (0.2-1.0); Calcium 9.8 MG/DL (8.5-10.1); Osmolality,Calculated 274.7 MOS/KG (273-304); Total Protein 7.6 G/DL (6.4-8.3)
[2020-05-22] MEDS ORDERED: cefOXitin 1,000 MG in SYRINGE 1 EACH IV ONE (06:00)
[2020-05-22] MEDS ORDERED: ALBUTEROL 2.5 MG/3 ML NEB RESP TX ONE (06:16)
[2020-05-22] MEDS ORDERED: FAMOTIDINE 20 MG TABLET PO ONE (06:16)
[2020-05-22] MEDS ORDERED: ACETAMINOPHEN 500 MG TABLET PO ONE (06:16)
[2020-05-22] MEDS ORDERED: GABAPENTIN 400 MG CAPSULE PO ONE (06:16)
[2020-05-22] MEDS ORDERED: DIAZEPAM 5 MG TABLET PO ONE (06:16)
[2020-05-22] MEDS ORDERED: LACTATED RINGERS 1,000 ML IV SCH ×2 (06:30→10:00)
[2020-05-22] MEDS ORDERED: SODIUM CHLORIDE 0.9% 250 ML IV SCH (06:30)
[2020-05-22 06:54] LABS: Hematocrit 36.1 VOL% (42.0-52.0); Hemoglobin 11.3 GM/DL (14.0-18.0)
[2020-05-22] MEDS ORDERED: GABAPENTIN 400 MG CAPSULE ONE (06:55)
[2020-05-22] MEDS ORDERED: DIAZEPAM 5 MG TABLET ONE (06:56)
[2020-05-22] MEDS ORDERED: ACETAMINOPHEN 500 MG TABLET ONE (06:56)
[2020-05-22] MEDS ORDERED: FAMOTIDINE 20 MG TABLET ONE (06:57)
[2020-05-22] MEDS ORDERED: ROPIVACAINE 0.5% 30 ML VIAL ONE (07:06)
[2020-05-22] MEDS ORDERED: DEXAMETHASONE 4 MG/1 ML VIAL ONE ×2 (07:07→07:14)
[2020-05-22] MEDS ORDERED: BUPIVACAINE MPF 0.25% 30 ML VIAL ONE ×2 (07:14→08:20)
[2020-05-22] MEDS ORDERED: EPINEPHrine 1 MG/ML VIAL ONE (07:14)
[2020-05-22] MEDS ORDERED: AMIODARONE 150 MG/3 ML VIAL ONE (07:36)
[2020-05-22] MEDS ORDERED: HEPARIN/NACL 0.9% 2 UNITS/ML 500 ML IV ONE (07:36)
[2020-05-22] MEDS ORDERED: SODIUM CHLORIDE 0.9% 100 ML IV ONE (07:37)
[2020-05-22] MEDS ORDERED: LIDOCAINE 1%/EPI INJ 20 ML VIAL ONE (08:20)
[2020-05-22] MEDS ORDERED: ONDANSETRON 4 MG/2 ML VIAL IV PRN (10:13)
[2020-05-22] MEDS ORDERED: HYDROmorphone 2 MG/1 ML VIAL IV PRN (10:13)
[2020-05-22] MEDS ORDERED: LIDOCAINE 2% 5 ML VIAL ONE (10:30)
[2020-05-22] MEDS ORDERED: propofoL 200 MG/20 ML VIAL IV ONE (10:30)
[2020-05-22] MEDS ORDERED: MIDAZOLAM 2 MG/2 ML VIAL ONE (10:31)
[2020-05-22] MEDS ORDERED: GLYCOPYRROLATE 0.4 MG/2 ML VIAL ONE (10:31)
[2020-05-22] MEDS ORDERED: ROCURONIUM 100 MG/10 ML VIAL IV ONE (10:31)
[2020-05-22] MEDS ORDERED: PHENYLEPHRINE DRIP 20 MG/250 ML PREMIX IV ONE (10:31)
[2020-05-22] MEDS ORDERED: ETOMIDATE 40 MG/20 ML VIAL IV ONE (10:31)
[2020-05-22] MEDS ORDERED: fentaNYL 100 MCG/2 ML VIAL ONE (10:31)
[2020-05-22] MEDS ORDERED: NEOSTIGMINE 10 MG/10 ML VIAL ONE (10:32)
[2020-05-22] MEDS ORDERED: SUGAMMADEX 200 MG/2 ML VIAL IV ONE (10:34)
[2020-05-22] MEDS: ONDANSETRON 4 MG/2 ML VIAL IV PRN ×2 (12:04→23:02)
[2020-05-22] MEDS: HYDROmorphone 2 MG/1 ML VIAL IV PRN ×4 (12:05→23:02)
[2020-05-22] MEDS ORDERED: DEXTROSE 50% 25 GM/50 ML VIAL IV PRN (12:39)
[2020-05-22] MEDS ORDERED: GLUCAGON 1 MG VIAL IM PRN (12:39)
[2020-05-22] MEDS: ISOSORBIDE DINITRATE 20 MG TABLET PO SCH ×2 (14:06→21:12)
[2020-05-22] MEDS: LACTATED RINGERS 1,000 ML IV SCH (14:27)
[2020-05-22] MEDS: INSULIN REGULAR 100 UNIT/ML SUBCUT SCH ×2 (17:54→21:12)
[2020-05-22] MEDS: GABAPENTIN 100 MG CAPSULE PO SCH (21:12)
[2020-05-22] MEDS: carvediloL 25 MG TABLET PO SCH (21:12)
[2020-05-22] MEDS: ALVIMOPAN 12 MG CAPSULE PO SCH (21:12)
[2020-05-23] MEDS: HYDROmorphone 2 MG/1 ML VIAL IV PRN ×3 (02:30→07:32)
[2020-05-23] MEDS: LACTATED RINGERS 1,000 ML IV SCH (02:33)
[2020-05-23] MEDS: ONDANSETRON 4 MG/2 ML VIAL IV PRN ×2 (03:10→20:56)
[2020-05-23 05:14] LABS: Basophils % 0.4 % (0.0-0.8); Eosinophils # 0.1 10*3/uL (0.0-0.87); Eosinophils % 0.9 % (0.00-10.9); Hemoglobin 10.4 GM/DL (14.0-18.0); Immature Granulocytes % 0.3 %; Immature Granulocytes Absolute 0.02 #; Lymphocytes # 1.2 10*3/uL (1.4-4.0); Lymphocytes % 15.5 % (21.2-54.2); Mean Corpuscular HGB Conc 31.5 GM/DL (32-36); Mean Corpuscular Volume 88.7 FL (87-102); Mean Platelet Volume 10.3 FL (9.6-12.0); Neutrophils % 75.9 % (38.7-73.9); Platelet Count 143 T/CUMM (130-400); Red Blood Count 3.72 MC/CUMM (3.8-5.5); Red Cell Distribution Width 15.9 % (9.3-17.3); White Blood Count 7.4 T/CUMM (4-12)
[2020-05-23] MEDS: ISOSORBIDE DINITRATE 20 MG TABLET PO SCH ×3 (05:36→20:59)
[2020-05-23 05:39] LABS: Osmolality,Calculated 281.4 MOS/KG (273-304)
[2020-05-23 05:41] LABS: Calcium 9.1 MG/DL (8.5-10.1); Osmolality,Calculated 281.4 MOS/KG (273-304)
[2020-05-23] MEDS: INSULIN REGULAR 100 UNIT/ML SUBCUT SCH ×4 (08:37→20:59)
[2020-05-23] MEDS ORDERED: HYDROmorphone 2 MG/1 ML VIAL IV ONE (08:41)
[2020-05-23] MEDS: ASPIRIN CHEW 81 MG TABLET PO SCH (08:55)
[2020-05-23] MEDS: carvediloL 25 MG TABLET PO SCH ×2 (08:55→20:55)
[2020-05-23] MEDS: ATORVASTATIN 80 MG TABLET PO SCH (08:55)
[2020-05-23] MEDS: TAMSULOSIN 0.4 MG CAPSULE PO SCH (08:55)
[2020-05-23] MEDS: ALVIMOPAN 12 MG CAPSULE PO SCH ×2 (08:55→20:54)
[2020-05-23] MEDS: amLODIPine 10 MG TABLET PO SCH (08:56)
[2020-05-23] MEDS: KETOROLAC 15 MG/1 ML VIAL IV SCH ×3 (09:20→20:57)
[2020-05-23] MEDS ORDERED: LIDOCAINE/PRILOCAINE CREAM 5 GM TUBE TOP ONE (13:50)
[2020-05-23] MEDS: GABAPENTIN 100 MG CAPSULE PO SCH (20:53)
[2020-05-23] MEDS: ASCORBIC ACID 500 MG TABLET PO SCH (20:59)
[2020-05-24] MEDS: ONDANSETRON 4 MG/2 ML VIAL IV PRN ×3 (02:51→14:38)
[2020-05-24] MEDS: KETOROLAC 15 MG/1 ML VIAL IV SCH ×4 (02:52→20:15)
[2020-05-24 06:13] LABS: Basophils % 0.1 % (0.0-0.8); Eosinophils # 0.2 10*3/uL (0.0-0.87); Eosinophils % 2.7 % (0.00-10.9); Hematocrit 34.2 VOL% (42.0-52.0); Hemoglobin 10.6 GM/DL (14.0-18.0); Immature Granulocytes % 0.3 %; Immature Granulocytes Absolute 0.02 #; Lymphocytes # 0.9 10*3/uL (1.4-4.0); Lymphocytes % 12.4 % (21.2-54.2); Mean Corpuscular Volume 90.2 FL (87-102); Mean Platelet Volume 11.7 FL (9.6-12.0); Monocytes % 7.5 % (1.7-12.7); Platelet Count 157 T/CUMM (130-400); Red Blood Count 3.79 MC/CUMM (3.8-5.5); Red Cell Distribution Width 15.9 % (9.3-17.3); White Blood Count 6.9 T/CUMM (4-12)
[2020-05-24] MEDS: ISOSORBIDE DINITRATE 20 MG TABLET PO SCH ×4 (06:14→21:48)
[2020-05-24] MEDS: HYDROmorphone 2 MG/1 ML VIAL IV PRN ×2 (06:33→16:24)
[2020-05-24 06:36] LABS: Calcium 9.2 MG/DL (8.5-10.1); Osmolality,Calculated 274.8 MOS/KG (273-304)
[2020-05-24] MEDS: INSULIN REGULAR 100 UNIT/ML SUBCUT SCH ×4 (08:38→20:56)
[2020-05-24] MEDS: TAMSULOSIN 0.4 MG CAPSULE PO SCH (09:23)
[2020-05-24] MEDS: carvediloL 25 MG TABLET PO SCH ×2 (09:23→20:10)
[2020-05-24] MEDS: ASPIRIN CHEW 81 MG TABLET PO SCH (09:23)
[2020-05-24] MEDS: ATORVASTATIN 80 MG TABLET PO SCH (09:23)
[2020-05-24] MEDS: ASCORBIC ACID 500 MG TABLET PO SCH ×2 (09:23→20:09)
[2020-05-24] MEDS: amLODIPine 10 MG TABLET PO SCH (09:23)
[2020-05-24] MEDS: ALVIMOPAN 12 MG CAPSULE PO SCH ×2 (09:24→20:10)
[2020-05-24] MEDS: GABAPENTIN 100 MG CAPSULE PO SCH (20:10)
[2020-05-25] MEDS: KETOROLAC 15 MG/1 ML VIAL IV SCH ×4 (03:57→20:42)
[2020-05-25] MEDS: ISOSORBIDE DINITRATE 20 MG TABLET PO SCH ×4 (05:18→21:12)
[2020-05-25] MEDS: INSULIN REGULAR 100 UNIT/ML SUBCUT SCH ×4 (07:58→20:45)
[2020-05-25] MEDS: ONDANSETRON 4 MG/2 ML VIAL IV PRN (08:31)
[2020-05-25] MEDS: ATORVASTATIN 80 MG TABLET PO SCH (08:34)
[2020-05-25] MEDS: ASCORBIC ACID 500 MG TABLET PO SCH ×2 (08:34→20:41)
[2020-05-25] MEDS: carvediloL 25 MG TABLET PO SCH ×2 (08:34→20:41)
[2020-05-25] MEDS: amLODIPine 10 MG TABLET PO SCH (08:34)
[2020-05-25] MEDS: TAMSULOSIN 0.4 MG CAPSULE PO SCH (08:35)
[2020-05-25] MEDS: ASPIRIN CHEW 81 MG TABLET PO SCH (08:35)
[2020-05-25] MEDS: ALVIMOPAN 12 MG CAPSULE PO SCH ×2 (08:35→20:41)
[2020-05-25] MEDS: GABAPENTIN 100 MG CAPSULE PO SCH (20:41)
[2020-05-26] MEDS: KETOROLAC 15 MG/1 ML VIAL IV SCH ×4 (03:42→21:35)
[2020-05-26] MEDS: ISOSORBIDE DINITRATE 20 MG TABLET PO SCH ×3 (07:01→21:34)
[2020-05-26] MEDS: ASPIRIN CHEW 81 MG TABLET PO SCH (08:04)
[2020-05-26] MEDS: amLODIPine 10 MG TABLET PO SCH (08:04)
[2020-05-26] MEDS: ASCORBIC ACID 500 MG TABLET PO SCH ×2 (08:04→20:11)
[2020-05-26] MEDS: ALVIMOPAN 12 MG CAPSULE PO SCH (08:04)
[2020-05-26] MEDS: ATORVASTATIN 80 MG TABLET PO SCH (08:04)
[2020-05-26] MEDS: TAMSULOSIN 0.4 MG CAPSULE PO SCH (08:04)
[2020-05-26] MEDS: carvediloL 25 MG TABLET PO SCH ×2 (08:04→20:10)
[2020-05-26] MEDS: INSULIN REGULAR 100 UNIT/ML SUBCUT SCH ×4 (08:05→21:33)
[2020-05-26] MEDS: ONDANSETRON 4 MG/2 ML VIAL IV PRN (08:06)
[2020-05-26] MEDS ORDERED: hydrALAZINE 20 MG/1 ML VIAL IV PRN (13:10)
[2020-05-26 13:46] LABS: Basophils % 0.2 % (0.0-0.8); Eosinophils # 0.3 10*3/uL (0.0-0.87); Eosinophils % 4.6 % (0.00-10.9); Hematocrit 35.5 VOL% (42.0-52.0); Hemoglobin 11.7 GM/DL (14.0-18.0); Immature Granulocytes % 0.2 %; Immature Granulocytes Absolute 0.01 #; Lymphocytes # 1.1 10*3/uL (1.4-4.0); Lymphocytes % 20.5 % (21.2-54.2); Mean Platelet Volume 11.2 FL (9.6-12.0); Monocytes % 9.7 % (1.7-12.7); Neutrophils % 64.8 % (38.7-73.9); Platelet Count 153 T/CUMM (130-400); Red Blood Count 4.13 MC/CUMM (3.8-5.5); Red Cell Distribution Width 15.4 % (9.3-17.3); White Blood Count 5.5 T/CUMM (4-12)
[2020-05-26 14:11] LABS: Calcium 9.2 MG/DL (8.5-10.1); Osmolality,Calculated 270.8 MOS/KG (273-304)
[2020-05-26] MEDS: HYDROmorphone 2 MG/1 ML VIAL IV PRN (19:38)
[2020-05-26] MEDS: GABAPENTIN 100 MG CAPSULE PO SCH (20:11)
[2020-05-27] MEDS: KETOROLAC 15 MG/1 ML VIAL IV SCH ×4 (03:00→20:34)
[2020-05-27] MEDS: ISOSORBIDE DINITRATE 20 MG TABLET PO SCH ×3 (05:08→21:50)
[2020-05-27] MEDS: INSULIN REGULAR 100 UNIT/ML SUBCUT SCH ×4 (08:46→20:34)
[2020-05-27] MEDS: ASPIRIN CHEW 81 MG TABLET PO SCH (09:35)
[2020-05-27] MEDS: amLODIPine 10 MG TABLET PO SCH (09:36)
[2020-05-27] MEDS: ATORVASTATIN 80 MG TABLET PO SCH (09:36)
[2020-05-27] MEDS: ASCORBIC ACID 500 MG TABLET PO SCH ×2 (09:36→20:34)
[2020-05-27] MEDS: TAMSULOSIN 0.4 MG CAPSULE PO SCH (09:36)
[2020-05-27] MEDS: carvediloL 25 MG TABLET PO SCH ×2 (09:37→20:34)
[2020-05-27] MEDS: GABAPENTIN 100 MG CAPSULE PO SCH (20:34)
[2020-05-28] MEDS: KETOROLAC 15 MG/1 ML VIAL IV SCH (03:40)
[2020-05-28] MEDS: ISOSORBIDE DINITRATE 20 MG TABLET PO SCH ×2 (05:58→14:04)
[2020-05-28] MEDS: INSULIN REGULAR 100 UNIT/ML SUBCUT SCH ×2 (08:32→12:51)
[2020-05-28] MEDS: ONDANSETRON 4 MG/2 ML VIAL IV PRN (12:33)
[2020-05-28] MEDS: TAMSULOSIN 0.4 MG CAPSULE PO SCH (12:35)
[2020-05-28] MEDS: ATORVASTATIN 80 MG TABLET PO SCH (12:36)
[2020-05-28] MEDS: amLODIPine 10 MG TABLET PO SCH (12:36)
[2020-05-28] MEDS: ASCORBIC ACID 500 MG TABLET PO SCH (12:36)
[2020-05-28] MEDS: ASPIRIN CHEW 81 MG TABLET PO SCH (12:36)
[2020-05-28] MEDS: carvediloL 25 MG TABLET PO SCH (12:36)
[2020-05-28 12:47] VITALS: BP 138/67
== END 2020-05-28 15:22 | disposition home or self-care (01) | DRG 329 ==
LOC: N.OR 05:42 → N.SDSINP 05:44 → N.4E 10:53
PROVIDERS: ADMIT Surgery; ATTEND Surgery

== ENCOUNTER 2021-07-07 09:29 | Inpatient (IN) ==
[2021-07-07] MEDS ORDERED: ASPIRIN 325 MG TABLET PO STA (10:32)
[2021-07-07 11:15] LABS: Basophils % 0.4 % (0.0-0.8); Eosinophils # 0.1 10*3/uL (0.0-0.87); Eosinophils % 1.3 % (0.00-10.9); Hematocrit 26.4 VOL% (42.0-52.0); Hemoglobin 8.5 GM/DL (14.0-18.0); Immature Granulocytes % 0.4 %; Immature Granulocytes Absolute 0.03 #; Lymphocytes # 1.2 10*3/uL (1.4-4.0); Lymphocytes % 14.1 % (21.2-54.2); Mean Corpuscular HGB Conc 32.2 GM/DL (32-36); Mean Corpuscular Volume 95.7 FL (87-102); Mean Platelet Volume 11.1 FL (9.6-12.0); Monocytes % 8.9 % (1.7-12.7); Neutrophils % 74.9 % (38.7-73.9); Platelet Count 156 T/CUMM (130-400); Red Blood Count 2.76 MC/CUMM (3.8-5.5); White Blood Count 8.5 T/CUMM (4-12)
[2021-07-07] MEDS ORDERED: cefTRIAXone 1,000 MG in SODIUM CHLORIDE 0.9% 100 ML IV STA (11:41)
[2021-07-07] MEDS ORDERED: AZITHROMYCIN 250 MG TABLET PO STA (11:41)
[2021-07-07 11:42] LABS: Albumin 3.1 G/DL (3.4-5.0); Bilirubin,Total 0.7 MG/DL (0.20-1.00); Osmolality,Calculated 272.8 MOS/KG (273-304); Potassium 3.4 MMOL/L (3.5-5.1); Total Protein 6.4 G/DL (6.4-8.2)
[2021-07-07] MEDS ORDERED: ASPIRIN CHEW 81 MG TABLET PO STA (11:57)
[2021-07-07] MEDS ORDERED: ENOXAPARIN 30 MG/0.3 ML SYRINGE SUBCUT STA (11:57)
[2021-07-07 12:36] LABS: Bilirubin,Urine Negative (Negative); Blood, Urine Large mg/dL (Negative); Glucose,Urine (UA) 50 mg/dL (Negative); Ketones,Urine Negative (Negative); Mucus,Urine Occasional /LPF (Occasional); Nitrite,Urine Negative (Negative); Protein,Urine >=500 MG/DL; RBC,Urine 1873 /HPF (0-4); Squamous Epithelial Cell,Urine Occasional /HPF (0-10); Urine Appearance Slightly Hazy (Clear); Urine Color Yellow (Yellow); Urine Specific Gravity 1.007 (1.001-1.035); Urine Urobilinogen < 2.0 EU/DL (0.2-1.0)
[2021-07-07] MEDS ORDERED: ONDANSETRON 4 MG/2 ML VIAL IV PRN (12:50)
[2021-07-07] MEDS ORDERED: ACETAMINOPHEN 325 MG TABLET PO PRN (12:50)
[2021-07-07] MEDS ORDERED: GLUCAGON 1 MG VIAL IM PRN ×2 (12:50→15:37)
[2021-07-07] MEDS ORDERED: DEXTROSE 50% 25 GM/50 ML VIAL IV PRN ×2 (12:50→15:37)
[2021-07-07] MEDS ORDERED: NITROGLYCERIN SL 0.4 MG TABLET SL PRN (13:23)
[2021-07-07] MEDS ORDERED: LABETALOL 20 MG/4 ML SYRINGE IV STA (13:26)
[2021-07-07] MEDS: hydrALAZINE 25 MG TABLET PO SCH ×2 (15:43→20:49)
[2021-07-07] MEDS: ISOSORBIDE DINITRATE 20 MG TABLET PO SCH ×2 (15:44→20:49)
[2021-07-07] MEDS: ALBUTEROL/IPRATROPIUM 3 ML NEB RESP TX SCH (19:10)
[2021-07-07] MEDS: carvediloL 25 MG TABLET PO SCH (20:49)
[2021-07-07] MEDS: ATORVASTATIN 80 MG TABLET PO SCH (20:49)
[2021-07-07] MEDS: INSULIN LISPRO 100 UNIT/ML SUBCUT SCH ×2 (22:23→22:24)
[2021-07-08] MEDS: ALBUTEROL/IPRATROPIUM 3 ML NEB RESP TX SCH ×4 (00:26→19:59)
[2021-07-08 05:33] LABS: Basophils % 0.4 % (0.0-0.8); Eosinophils # 0.2 10*3/uL (0.0-0.87); Eosinophils % 3.2 % (0.00-10.9); Hematocrit 24.5 VOL% (42.0-52.0); Hemoglobin 7.7 GM/DL (14.0-18.0); Immature Granulocytes % 0.4 %; Immature Granulocytes Absolute 0.02 #; Lymphocytes # 1.6 10*3/uL (1.4-4.0); Lymphocytes % 30.7 % (21.2-54.2); Mean Corpuscular HGB Conc 31.4 GM/DL (32-36); Mean Corpuscular Volume 96.8 FL (87-102); Mean Platelet Volume 11.9 FL (9.6-12.0); Monocytes % 8.5 % (1.7-12.7); Neutrophils % 56.8 % (38.7-73.9); Platelet Count 137 T/CUMM (130-400); Red Blood Count 2.53 MC/CUMM (3.8-5.5); Red Cell Distribution Width 16.7 % (9.3-17.3); White Blood Count 5.3 T/CUMM (4-12)
[2021-07-08 06:54] LABS: Albumin 2.8 G/DL (3.4-5.0); Bilirubin,Total 0.6 MG/DL (0.20-1.00); Calcium 9.6 MG/DL (8.5-10.1); Potassium 3.8 MMOL/L (3.5-5.1); Risk Ratio 2.43; Total Protein 6.1 G/DL (6.4-8.2); VLDL Cholesterol 17.8 MG/DL
[2021-07-08] MEDS: INSULIN LISPRO 100 UNIT/ML SUBCUT SCH ×6 (07:30→20:51)
[2021-07-08] MEDS: ISOSORBIDE DINITRATE 20 MG TABLET PO SCH ×3 (10:19→21:00)
[2021-07-08] MEDS: hydrALAZINE 25 MG TABLET PO SCH ×3 (10:19→21:00)
[2021-07-08] MEDS: amLODIPine 10 MG TABLET PO SCH (10:19)
[2021-07-08] MEDS: carvediloL 25 MG TABLET PO SCH ×2 (10:19→21:00)
[2021-07-08] MEDS: ENOXAPARIN 30 MG/0.3 ML SYRINGE SUBCUT SCH (10:21)
[2021-07-08] MEDS: AZITHROMYCIN INJ 500 MG in SODIUM CHLORIDE 0.9% 250 ML IV SCH (11:37)
[2021-07-08] MEDS: cefTRIAXone 1,000 MG in SODIUM CHLORIDE 0.9% 100 ML IV SCH (12:32)
[2021-07-08] MEDS: ATORVASTATIN 80 MG TABLET PO SCH (21:00)
[2021-07-09] MEDS: ALBUTEROL/IPRATROPIUM 3 ML NEB RESP TX SCH ×3 (00:34→12:41)
[2021-07-09 06:30] LABS: Basophils % 0.6 % (0.0-0.8); Eosinophils # 0.2 10*3/uL (0.0-0.87); Eosinophils % 3.3 % (0.00-10.9); Hematocrit 23.2 VOL% (42.0-52.0); Hemoglobin 7.4 GM/DL (14.0-18.0); Immature Granulocytes % 0.2 %; Immature Granulocytes Absolute 0.01 #; Lymphocytes # 1.8 10*3/uL (1.4-4.0); Mean Corpuscular HGB Conc 31.9 GM/DL (32-36); Mean Corpuscular Volume 97.5 FL (87-102); Mean Platelet Volume 11.8 FL (9.6-12.0); Monocytes % 11.6 % (1.7-12.7); Neutrophils % 50.3 % (38.7-73.9); Platelet Count 114 T/CUMM (130-400); Red Blood Count 2.38 MC/CUMM (3.8-5.5); Red Cell Distribution Width 16.7 % (9.3-17.3); White Blood Count 5.4 T/CUMM (4-12)
[2021-07-09 06:49] LABS: Albumin 2.8 G/DL (3.4-5.0); Bilirubin,Total 0.5 MG/DL (0.20-1.00); Calcium 9.2 MG/DL (8.5-10.1); Osmolality,Calculated 277.5 MOS/KG (273-304); Total Protein 6.4 G/DL (6.4-8.2)
[2021-07-09 13:56] VITALS: BP 153/71
[2021-07-09] MEDS: INSULIN LISPRO 100 UNIT/ML SUBCUT SCH ×2 (14:54→14:55)
[2021-07-09] MEDS: carvediloL 25 MG TABLET PO SCH (14:55)
[2021-07-09] MEDS: hydrALAZINE 25 MG TABLET PO SCH ×2 (14:55→15:38)
[2021-07-09] MEDS: ENOXAPARIN 30 MG/0.3 ML SYRINGE SUBCUT SCH (14:56)
[2021-07-09] MEDS: amLODIPine 10 MG TABLET PO SCH (14:56)
[2021-07-09] MEDS: AZITHROMYCIN INJ 500 MG in SODIUM CHLORIDE 0.9% 250 ML IV SCH (14:56)
[2021-07-09] MEDS: ISOSORBIDE DINITRATE 20 MG TABLET PO SCH ×2 (14:56→15:38)
[2021-07-09] MEDS: cefTRIAXone 1,000 MG in SODIUM CHLORIDE 0.9% 100 ML IV SCH (14:57)
== END 2021-07-09 15:42 | disposition home or self-care (01) | DRG 280 ==
LOC: EDUNIT# → EDBD → N.EDINP 09:29 → N.ED 09:29 → N.EDINP 16:26 → N.TELEN 18:21
PROVIDERS: ADMIT Internal Medicine; ATTEND Internal Medicine

== ENCOUNTER 2021-12-28 08:16 | Inpatient (IN) ==
[2021-12-28 08:49] LABS: Basophils % 0.5 % (0.0-0.8); Eosinophils # 0.1 10*3/uL (0.0-0.87); Eosinophils % 1.9 % (0.00-10.9); Hematocrit 41.6 VOL% (42.0-52.0); Hemoglobin 13.4 GM/DL (14.0-18.0); Immature Granulocytes % 0.2 %; Immature Granulocytes Absolute 0.01 #; Lymphocytes # 0.7 10*3/uL (1.4-4.0); Lymphocytes % 12.2 % (21.2-54.2); Mean Corpuscular HGB Conc 32.2 GM/DL (32-36); Mean Corpuscular Volume 90.6 FL (87-102); Mean Platelet Volume 11.9 FL (9.6-12.0); Neutrophils % 79.2 % (38.7-73.9); Platelet Count 119 T/CUMM (130-400); Red Blood Count 4.59 MC/CUMM (3.8-5.5); Red Cell Distribution Width 18.4 % (9.3-17.3); White Blood Count 5.7 T/CUMM (4-12)
[2021-12-28 09:01] LABS: Anisocytosis 1+; Burr Cells Few; Hypochromia Slight; Macrocytosis Slight; Ovalocytes Few; Platelet Estimate Adequate
[2021-12-28 09:08] LABS: Albumin 3.3 G/DL (3.4-5.0); Bilirubin,Total 0.4 MG/DL (0.20-1.00); Osmolality,Calculated 282.8 MOS/KG (273-304); Potassium 4.7 MMOL/L (3.5-5.1); Total Protein 7.3 G/DL (6.4-8.2)
[2021-12-28] MEDS ORDERED: MEROPENEM 500 MG in SODIUM CHLORIDE 0.9% 100 ML IV ONE (09:22)
[2021-12-28] MEDS ORDERED: ETOMIDATE 20 MG/10 ML VIAL IV ONE (09:29)
[2021-12-28] MEDS ORDERED: ROCURONIUM 100 MG/10 ML VIAL IV ONE (09:29)
[2021-12-28 09:41] LABS: Arterial Base Excess iSTAT 1 MMOL/L (-2.5-2.5); Arterial Bicarbonate iSTAT 26.5 MMOL/L (20-26); Arterial O2 Saturation iSTAT 92 % (95-100); Arterial PCO2 iSTAT 43 MM HG (35-48); Arterial PO2 iSTAT 65 MM HG (80-95); Arterial Total CO2 iSTAT 28 MMO/L (23-27)
[2021-12-28] MEDS ORDERED: ALBUTEROL 2.5 MG/3 ML NEB RESP TX PRN (10:02)
[2021-12-28] MEDS ORDERED: hydrALAZINE 20 MG/1 ML VIAL IV PRN (10:03)
[2021-12-28] MEDS ORDERED: DEXTROSE 10% 250 ML BAG IV STA (10:06)
[2021-12-28] MEDS ORDERED: DEXTROSE 10% 250 ML BAG IV PRN (10:21)
[2021-12-28] MEDS ORDERED: GLUCAGON 1 MG VIAL IM PRN (10:21)
[2021-12-28 11:19] LABS: Arterial Base Excess iSTAT 3 MMOL/L (-2.5-2.5); Arterial Bicarbonate iSTAT 27.4 MMOL/L (20-26); Arterial O2 Saturation iSTAT 100 % (95-100); Arterial PCO2 iSTAT 40 MM HG (35-48); Arterial PO2 iSTAT 187 MM HG (80-95); Arterial Total CO2 iSTAT 29 MMO/L (23-27); Arterial pH iSTAT 7.441 (7.35-7.45)
[2021-12-28] MEDS: INSULIN LISPRO 100 UNIT/ML SUBCUT SCH ×3 (11:59→23:52)
[2021-12-28] MEDS: CEFEPIME 1,000 MG in SODIUM CHLORIDE 0.9% 100 ML IV SCH (12:19)
[2021-12-28] MEDS: PANTOPRAZOLE 40 MG VIAL IV SCH (12:19)
[2021-12-28] MEDS: HEPARIN 5,000 UNIT/1 ML VIAL SUBCUT SCH ×2 (12:19→22:55)
[2021-12-28] MEDS: AZITHROMYCIN INJ 500 MG in SODIUM CHLORIDE 0.9% 250 ML IV SCH (13:02)
[2021-12-28] MEDS: busPIRone 10 MG TABLET PO SCH ×2 (15:11→21:21)
[2021-12-28 15:24] LABS: RBC,Urine 199 /HPF (0-4); Squamous Epithelial Cell,Urine Occasional /HPF (0-10); Urine Appearance Clear (Clear); Urine Color Yellow (Yellow)
[2021-12-28 15:28] LABS: Bilirubin,Urine Negative (Negative); Blood, Urine Large mg/dL (Negative); Glucose,Urine (UA) Negative (Negative); Ketones,Urine 15 mg/dL (Negative); Nitrite,Urine Negative (Negative); Protein,Urine >=300 mg/dL (Negative); Urine Urobilinogen 0.2 eU/dL (<2.0); Urine pH 8.5 (4.5-8.0)
[2021-12-28] MEDS: carvediloL 25 MG TABLET PO SCH (21:20)
[2021-12-28] MEDS: ISOSORBIDE DINITRATE 10 MG TABLET PO SCH (21:20)
[2021-12-28] MEDS: GABAPENTIN 300 MG CAPSULE PO SCH (21:21)
[2021-12-28] MEDS: TICAGRELOR 90 MG TABLET PO SCH (21:21)
[2021-12-28] MEDS: CINACALCET 30 MG TABLET PO SCH (21:21)
[2021-12-28] MEDS: ATORVASTATIN 80 MG TABLET PO SCH (21:21)
[2021-12-28] MEDS: levETIRAcetam 500 MG TABLET PO SCH (21:21)
[2021-12-28] MEDS ORDERED: SODIUM CHLORIDE 0.9% 250 ML IV ONE (22:07)
[2021-12-28 23:26] LABS: Alanine Aminotransferase < 6 U/L (16-61); Albumin 2.5 G/DL (3.4-5.0); Alkaline Phosphatase 89 U/L (45-117); Aspartate Amino Transferase 10 U/L (0-37); Blood Urea Nitrogen 26 MG/DL (7-18); Calcium 8.7 MG/DL (8.5-10.1); Carbon Dioxide 30 MMOL/L (21-32); Estimated Glom Filtration Rate 12 ML/MIN; Glucose 87 MG/DL (74-106); Osmolality,Calculated 276.8 MOS/KG (273-304); Potassium 3.7 MMOL/L (3.5-5.1); Sodium 137 MMOL/L (136-145); Total Protein 6.6 G/DL (6.4-8.2)
[2021-12-29] MEDS ORDERED: MIDAZOLAM 100 MG in SODIUM CHLORIDE 0.9% 80 ML IV PRN (00:35)
[2021-12-29 03:09] LABS: ABG Base Excess 5.8 MMOL/L (-2.5-2.5); ABG HCO3 29.7 MMOL/L (20-26); ABG PCO2 35.1 MM HG (35-48); ABG PH 7.522 (7.35-7.45); ABG TCO2 26.2 MMOL/L (23-27)
[2021-12-29 03:25] LABS: Basophils % 0.3 % (0.0-0.8); Eosinophils # 0.1 10*3/uL (0.0-0.87); Eosinophils % 1.7 % (0.00-10.9); Hematocrit 27.8 VOL% (42.0-52.0); Hemoglobin 9.1 GM/DL (14.0-18.0); Immature Granulocytes % 0.2 %; Immature Granulocytes Absolute 0.01 #; Lymphocytes # 0.8 10*3/uL (1.4-4.0); Lymphocytes % 13.1 % (21.2-54.2); Mean Corpuscular HGB Conc 32.7 GM/DL (32-36); Mean Corpuscular Volume 91.1 FL (87-102); Mean Platelet Volume 11.3 FL (9.6-12.0); Neutrophils % 77.7 % (38.7-73.9); Platelet Count 126 T/CUMM (130-400); Red Blood Count 3.05 MC/CUMM (3.8-5.5); Red Cell Distribution Width 17.5 % (9.3-17.3); White Blood Count 5.7 T/CUMM (4-12)
[2021-12-29 03:48] LABS: Albumin 2.5 G/DL (3.4-5.0); Bilirubin,Total 0.5 MG/DL (0.20-1.00); Calcium 8.4 MG/DL (8.5-10.1); Osmolality,Calculated 278.8 MOS/KG (273-304); Potassium 3.9 MMOL/L (3.5-5.1); Total Protein 6.4 G/DL (6.4-8.2)
[2021-12-29] MEDS: INSULIN LISPRO 100 UNIT/ML SUBCUT SCH ×3 (06:12→17:12)
[2021-12-29] MEDS: BICALUTAMIDE 50 MG TABLET PO SCH (08:26)
[2021-12-29] MEDS: CHOLECALCIFEROL 5,000 UNIT TABLET PO SCH (08:27)
[2021-12-29] MEDS: TAMSULOSIN 0.4 MG CAPSULE PO SCH (08:27)
[2021-12-29] MEDS: CINACALCET 30 MG TABLET PO SCH ×2 (08:27→21:57)
[2021-12-29] MEDS: ISOSORBIDE DINITRATE 10 MG TABLET PO SCH ×2 (08:27→20:45)
[2021-12-29] MEDS: ASPIRIN CHEW 81 MG TABLET PO SCH (08:28)
[2021-12-29] MEDS: busPIRone 10 MG TABLET PO SCH ×3 (08:28→20:45)
[2021-12-29] MEDS: amLODIPine 10 MG TABLET PO SCH (08:28)
[2021-12-29] MEDS: levETIRAcetam 500 MG TABLET PO SCH ×2 (08:28→20:45)
[2021-12-29] MEDS: TICAGRELOR 90 MG TABLET PO SCH ×2 (08:28→20:45)
[2021-12-29] MEDS: carvediloL 25 MG TABLET PO SCH ×2 (08:29→20:46)
[2021-12-29] MEDS: GABAPENTIN 300 MG CAPSULE PO SCH ×2 (08:29→20:45)
[2021-12-29] MEDS: PANTOPRAZOLE 40 MG VIAL IV SCH (10:09)
[2021-12-29] MEDS: HEPARIN 5,000 UNIT/1 ML VIAL SUBCUT SCH ×2 (10:10→22:40)
[2021-12-29] MEDS: AZITHROMYCIN INJ 500 MG in SODIUM CHLORIDE 0.9% 250 ML IV SCH (10:11)
[2021-12-29] MEDS: CEFEPIME 1,000 MG in SODIUM CHLORIDE 0.9% 100 ML IV SCH (10:12)
[2021-12-29] MEDS: METOCLOPRAMIDE 10 MG/2 ML VIAL IV SCH ×2 (12:02→17:25)
[2021-12-29 12:21] LABS: Hematocrit 26.5 VOL% (42.0-52.0); Hemoglobin 8.5 GM/DL (14.0-18.0)
[2021-12-29 12:31] LABS: INR 1.2; PT Patient Result 13.3 SECS (10.5-12.0); Partial Thromboplastin Time 37.2 SECS (23.8-32.1)
[2021-12-29 12:32] LABS: Calcium 8.7 MG/DL (8.5-10.1); Osmolality,Calculated 282.8 MOS/KG (273-304); Potassium 3.8 MMOL/L (3.5-5.1)
[2021-12-29] MEDS: ATORVASTATIN 80 MG TABLET PO SCH (20:45)
[2021-12-30] MEDS: INSULIN LISPRO 100 UNIT/ML SUBCUT SCH ×5 (00:04→23:41)
[2021-12-30] MEDS: MORPHINE 2 MG/1 ML SYRINGE IV PRN ×3 (01:36→23:41)
[2021-12-30 03:27] LABS: Basophils % 0.3 % (0.0-0.8); Eosinophils # 0.3 10*3/uL (0.0-0.87); Eosinophils % 5.7 % (0.00-10.9); Hematocrit 24.6 VOL% (42.0-52.0); Hemoglobin 7.9 GM/DL (14.0-18.0); Immature Granulocytes % 0.2 %; Immature Granulocytes Absolute 0.01 #; Lymphocytes # 0.8 10*3/uL (1.4-4.0); Lymphocytes % 13.8 % (21.2-54.2); Mean Corpuscular HGB Conc 32.1 GM/DL (32-36); Mean Corpuscular Volume 90.1 FL (87-102); Mean Platelet Volume 11.9 FL (9.6-12.0); Monocytes % 9.3 % (1.7-12.7); Neutrophils % 70.7 % (38.7-73.9); Platelet Count 125 T/CUMM (130-400); Red Blood Count 2.73 MC/CUMM (3.8-5.5); Red Cell Distribution Width 17.5 % (9.3-17.3); White Blood Count 5.9 T/CUMM (4-12)
[2021-12-30 03:40] LABS: Calcium 8.2 MG/DL (8.5-10.1); Potassium 3.6 MMOL/L (3.5-5.1)
[2021-12-30 03:47] LABS: ABG Base Excess 2.9 MMOL/L (-2.5-2.5); ABG Oxygen Saturation 97.8 % (95-100); ABG PCO2 35.7 MM HG (35-48); ABG PH 7.478 (7.35-7.45); ABG PO2 98.8 MM HG (80-95); ABG TCO2 24.5 MMOL/L (23-27)
[2021-12-30 04:15] LABS: % Iron Saturation 30.9 % (18-50); Ferritin 1974.5 ng/mL (26-388)
[2021-12-30] MEDS: METOCLOPRAMIDE 10 MG/2 ML VIAL IV SCH ×5 (06:12→23:40)
[2021-12-30] MEDS: PANTOPRAZOLE 40 MG VIAL IV SCH (09:43)
[2021-12-30] MEDS: HEPARIN 5,000 UNIT/1 ML VIAL SUBCUT SCH ×2 (09:44→21:59)
[2021-12-30] MEDS: CINACALCET 30 MG TABLET PO SCH ×2 (09:45→20:31)
[2021-12-30] MEDS: TAMSULOSIN 0.4 MG CAPSULE PO SCH (09:45)
[2021-12-30] MEDS: BICALUTAMIDE 50 MG TABLET PO SCH (09:45)
[2021-12-30] MEDS: ISOSORBIDE DINITRATE 10 MG TABLET PO SCH ×2 (09:46→20:31)
[2021-12-30] MEDS: GABAPENTIN 300 MG CAPSULE PO SCH ×2 (09:47→20:31)
[2021-12-30] MEDS: busPIRone 10 MG TABLET PO SCH ×3 (09:47→20:31)
[2021-12-30] MEDS: TICAGRELOR 90 MG TABLET PO SCH ×2 (09:47→20:31)
[2021-12-30] MEDS: ASPIRIN CHEW 81 MG TABLET PO SCH (09:47)
[2021-12-30] MEDS: carvediloL 25 MG TABLET PO SCH ×2 (09:47→20:31)
[2021-12-30] MEDS: CHOLECALCIFEROL 5,000 UNIT TABLET PO SCH (09:48)
[2021-12-30] MEDS: CEFEPIME 1,000 MG in SODIUM CHLORIDE 0.9% 100 ML IV SCH (10:16)
[2021-12-30] MEDS: amLODIPine 10 MG TABLET PO SCH (10:30)
[2021-12-30] MEDS: levETIRAcetam 500 MG TABLET PO SCH ×2 (10:30→20:32)
[2021-12-30 16:27] LABS: Arterial Base Excess iSTAT 7 MMOL/L (-2.5-2.5); Arterial Bicarbonate iSTAT 30.4 MMOL/L (20-26); Arterial O2 Saturation iSTAT 98 % (95-100); Arterial PCO2 iSTAT 38 MM HG (35-48); Arterial PO2 iSTAT 90 MM HG (80-95); Arterial Total CO2 iSTAT 32 MMO/L (23-27); Arterial pH iSTAT 7.511 (7.35-7.45)
[2021-12-30] MEDS: ACETAMINOPHEN 325 MG TABLET PO PRN (18:37)
[2021-12-30] MEDS: ONDANSETRON 4 MG/2 ML VIAL IV PRN (20:28)
[2021-12-30] MEDS: ATORVASTATIN 80 MG TABLET PO SCH (20:31)
[2021-12-30] MEDS: hydrALAZINE 25 MG TABLET PO SCH (21:59)
[2021-12-31] MEDS: METOCLOPRAMIDE 10 MG/2 ML VIAL IV SCH (05:08)
[2021-12-31] MEDS: MORPHINE 2 MG/1 ML SYRINGE IV PRN (05:08)
[2021-12-31 05:32] LABS: Basophils % 0.6 % (0.0-0.8); Eosinophils # 0.4 10*3/uL (0.0-0.87); Eosinophils % 7.5 % (0.00-10.9); Hematocrit 27.2 VOL% (42.0-52.0); Hemoglobin 8.5 GM/DL (14.0-18.0); Immature Granulocytes % 0.2 %; Immature Granulocytes Absolute 0.01 #; Lymphocytes # 0.8 10*3/uL (1.4-4.0); Lymphocytes % 15.8 % (21.2-54.2); Mean Corpuscular HGB Conc 31.3 GM/DL (32-36); Mean Platelet Volume 12.2 FL (9.6-12.0); Monocytes % 9.8 % (1.7-12.7); Neutrophils % 66.1 % (38.7-73.9); Platelet Count 130 T/CUMM (130-400); Red Blood Count 2.99 MC/CUMM (3.8-5.5); Red Cell Distribution Width 17.5 % (9.3-17.3); White Blood Count 5.2 T/CUMM (4-12)
[2021-12-31 05:50] LABS: Alanine Aminotransferase < 9 U/L (16-61); Albumin 2.5 G/DL (3.4-5.0); Alkaline Phosphatase 89 U/L (45-117); Aspartate Amino Transferase 19 U/L (0-37); Blood Urea Nitrogen 28 MG/DL (7-18); Calcium 8.8 MG/DL (8.5-10.1); Carbon Dioxide 30 MMOL/L (21-32); Estimated Glom Filtration Rate 11 ML/MIN; Glucose 78 MG/DL (74-106); Osmolality,Calculated 281.5 MOS/KG (273-304); Sodium 139 MMOL/L (136-145); Total Protein 6.6 G/DL (6.4-8.2)
[2021-12-31] MEDS: INSULIN LISPRO 100 UNIT/ML SUBCUT SCH ×4 (05:59→20:28)
[2021-12-31] MEDS: BICALUTAMIDE 50 MG TABLET PO SCH (10:52)
[2021-12-31] MEDS: CINACALCET 30 MG TABLET PO SCH ×2 (10:52→20:05)
[2021-12-31] MEDS: CHOLECALCIFEROL 5,000 UNIT TABLET PO SCH (10:53)
[2021-12-31] MEDS: GABAPENTIN 300 MG CAPSULE PO SCH ×2 (10:53→20:05)
[2021-12-31] MEDS: carvediloL 25 MG TABLET PO SCH ×2 (10:53→20:06)
[2021-12-31] MEDS: TAMSULOSIN 0.4 MG CAPSULE PO SCH (10:53)
[2021-12-31] MEDS: amLODIPine 10 MG TABLET PO SCH (10:54)
[2021-12-31] MEDS: levETIRAcetam 500 MG TABLET PO SCH ×2 (10:54→20:05)
[2021-12-31] MEDS: ASPIRIN CHEW 81 MG TABLET PO SCH (10:54)
[2021-12-31] MEDS: hydrALAZINE 25 MG TABLET PO SCH ×2 (10:55→22:10)
[2021-12-31] MEDS: ISOSORBIDE DINITRATE 10 MG TABLET PO SCH ×2 (10:55→20:06)
[2021-12-31] MEDS: busPIRone 10 MG TABLET PO SCH ×3 (10:55→20:05)
[2021-12-31] MEDS: TICAGRELOR 90 MG TABLET PO SCH ×2 (10:55→20:05)
[2021-12-31] MEDS: PANTOPRAZOLE 40 MG VIAL IV SCH (10:56)
[2021-12-31] MEDS: HEPARIN 5,000 UNIT/1 ML VIAL SUBCUT SCH ×2 (10:56→22:53)
[2021-12-31] MEDS: ACETAMINOPHEN 325 MG TABLET PO PRN (20:06)
[2021-12-31] MEDS: ATORVASTATIN 80 MG TABLET PO SCH (20:06)
[2022-01-01] MEDS: MORPHINE 2 MG/1 ML SYRINGE IV PRN ×2 (02:11→23:16)
[2022-01-01 05:44] LABS: Basophils % 0.4 % (0.0-0.8); Eosinophils # 0.4 10*3/uL (0.0-0.87); Eosinophils % 8.6 % (0.00-10.9); Hemoglobin 8.3 GM/DL (14.0-18.0); Immature Granulocytes % 0.2 %; Immature Granulocytes Absolute 0.01 #; Lymphocytes # 1.3 10*3/uL (1.4-4.0); Lymphocytes % 26.7 % (21.2-54.2); Mean Corpuscular HGB Conc 31.9 GM/DL (32-36); Mean Corpuscular Volume 90.9 FL (87-102); Mean Platelet Volume 12.1 FL (9.6-12.0); Monocytes % 11.2 % (1.7-12.7); Neutrophils % 52.9 % (38.7-73.9); Platelet Count 141 T/CUMM (130-400); Red Blood Count 2.86 MC/CUMM (3.8-5.5); Red Cell Distribution Width 17.5 % (9.3-17.3); White Blood Count 4.9 T/CUMM (4-12)
[2022-01-01 05:59] LABS: Calcium 7.7 MG/DL (8.5-10.1); Potassium 4.6 MMOL/L (3.5-5.1)
[2022-01-01] MEDS: INSULIN LISPRO 100 UNIT/ML SUBCUT SCH ×4 (07:33→22:45)
[2022-01-01] MEDS: amLODIPine 10 MG TABLET PO SCH (12:07)
[2022-01-01] MEDS: TAMSULOSIN 0.4 MG CAPSULE PO SCH (12:07)
[2022-01-01] MEDS: ASPIRIN CHEW 81 MG TABLET PO SCH (12:07)
[2022-01-01] MEDS: GABAPENTIN 300 MG CAPSULE PO SCH ×2 (12:07→22:43)
[2022-01-01] MEDS: busPIRone 10 MG TABLET PO SCH ×3 (12:07→22:43)
[2022-01-01] MEDS: CHOLECALCIFEROL 5,000 UNIT TABLET PO SCH (12:07)
[2022-01-01] MEDS: CINACALCET 30 MG TABLET PO SCH ×2 (12:07→22:42)
[2022-01-01] MEDS: BICALUTAMIDE 50 MG TABLET PO SCH (12:07)
[2022-01-01] MEDS: carvediloL 25 MG TABLET PO SCH ×2 (12:08→22:43)
[2022-01-01] MEDS: ISOSORBIDE DINITRATE 10 MG TABLET PO SCH ×2 (12:08→22:43)
[2022-01-01] MEDS: HEPARIN 5,000 UNIT/1 ML VIAL SUBCUT SCH ×2 (12:08→22:43)
[2022-01-01] MEDS: levETIRAcetam 500 MG TABLET PO SCH ×2 (12:08→22:42)
[2022-01-01] MEDS: TICAGRELOR 90 MG TABLET PO SCH ×2 (12:08→22:42)
[2022-01-01] MEDS: hydrALAZINE 25 MG TABLET PO SCH ×2 (12:08→22:42)
[2022-01-01] MEDS: ALBUTEROL/IPRATROPIUM 3 ML NEB RESP TX SCH ×2 (12:55→19:35)
[2022-01-01 14:14] LABS: Folate 5.36 NG/ML (5.38-24.0)
[2022-01-01] MEDS ORDERED: MELATONIN 3 MG TABLET PO PRN (18:27)
[2022-01-01] MEDS: ATORVASTATIN 80 MG TABLET PO SCH (22:43)
[2022-01-02] MEDS: ALBUTEROL/IPRATROPIUM 3 ML NEB RESP TX SCH ×4 (01:00→19:35)
[2022-01-02 04:44] LABS: Basophils % 0.7 % (0.0-0.8); Eosinophils # 0.3 10*3/uL (0.0-0.87); Hematocrit 26.5 VOL% (42.0-52.0); Hemoglobin 8.4 GM/DL (14.0-18.0); Immature Granulocytes % 0.2 %; Immature Granulocytes Absolute 0.01 #; Lymphocytes # 1.4 10*3/uL (1.4-4.0); Lymphocytes % 31.9 % (21.2-54.2); Mean Corpuscular HGB Conc 31.7 GM/DL (32-36); Mean Corpuscular Volume 90.1 FL (87-102); Monocytes % 13.7 % (1.7-12.7); Neutrophils % 45.5 % (38.7-73.9); Platelet Count 157 T/CUMM (130-400); Red Blood Count 2.94 MC/CUMM (3.8-5.5); Red Cell Distribution Width 17.4 % (9.3-17.3); White Blood Count 4.2 T/CUMM (4-12)
[2022-01-02 04:54] VITALS: BP 162/67
[2022-01-02 05:06] LABS: Calcium 8.3 MG/DL (8.5-10.1); Potassium 4.5 MMOL/L (3.5-5.1)
[2022-01-02 05:09] LABS: Hypochromia Slight; Platelet Estimate Normal
[2022-01-02] MEDS: INSULIN LISPRO 100 UNIT/ML SUBCUT SCH ×4 (08:18→20:20)
[2022-01-02] MEDS: CINACALCET 30 MG TABLET PO SCH ×2 (09:30→21:39)
[2022-01-02] MEDS: FERROUS SULFATE 325 MG TABLET PO SCH (09:30)
[2022-01-02] MEDS: BICALUTAMIDE 50 MG TABLET PO SCH (09:30)
[2022-01-02] MEDS: ASPIRIN CHEW 81 MG TABLET PO SCH (09:30)
[2022-01-02] MEDS: busPIRone 10 MG TABLET PO SCH ×3 (09:30→21:37)
[2022-01-02] MEDS: levETIRAcetam 500 MG TABLET PO SCH ×2 (09:31→21:38)
[2022-01-02] MEDS: carvediloL 25 MG TABLET PO SCH ×2 (09:31→21:38)
[2022-01-02] MEDS: GABAPENTIN 300 MG CAPSULE PO SCH ×2 (09:31→21:47)
[2022-01-02] MEDS: TICAGRELOR 90 MG TABLET PO SCH ×2 (09:31→21:36)
[2022-01-02] MEDS: hydrALAZINE 25 MG TABLET PO SCH ×2 (09:31→21:47)
[2022-01-02] MEDS: CHOLECALCIFEROL 5,000 UNIT TABLET PO SCH (09:31)
[2022-01-02] MEDS: TAMSULOSIN 0.4 MG CAPSULE PO SCH (09:31)
[2022-01-02] MEDS: amLODIPine 10 MG TABLET PO SCH (09:31)
[2022-01-02] MEDS: ISOSORBIDE DINITRATE 10 MG TABLET PO SCH ×2 (09:31→21:36)
[2022-01-02] MEDS: MORPHINE 2 MG/1 ML SYRINGE IV PRN ×3 (09:35→21:32)
[2022-01-02] MEDS: HEPARIN 5,000 UNIT/1 ML VIAL SUBCUT SCH ×2 (11:03→23:14)
[2022-01-02] MEDS: FOLIC ACID 1 MG TABLET PO SCH (15:23)
[2022-01-02] MEDS: ATORVASTATIN 80 MG TABLET PO SCH (21:38)
[2022-01-03] MEDS: ONDANSETRON 4 MG/2 ML VIAL IV PRN (00:03)
[2022-01-03] MEDS: ALBUTEROL/IPRATROPIUM 3 ML NEB RESP TX SCH ×3 (01:35→13:05)
[2022-01-03 05:29] LABS: Basophils % 0.8 % (0.0-0.8); Eosinophils # 0.3 10*3/uL (0.0-0.87); Eosinophils % 6.4 % (0.00-10.9); Hematocrit 26.2 VOL% (42.0-52.0); Hemoglobin 8.1 GM/DL (14.0-18.0); Immature Granulocytes % 0.2 %; Immature Granulocytes Absolute 0.01 #; Lymphocytes # 1.9 10*3/uL (1.4-4.0); Lymphocytes % 38.2 % (21.2-54.2); Mean Corpuscular HGB Conc 30.9 GM/DL (32-36); Mean Corpuscular Volume 89.4 FL (87-102); Mean Platelet Volume 11.6 FL (9.6-12.0); Monocytes % 11.2 % (1.7-12.7); Neutrophils % 43.2 % (38.7-73.9); Platelet Count 160 T/CUMM (130-400); Red Blood Count 2.93 MC/CUMM (3.8-5.5); Red Cell Distribution Width 17.8 % (9.3-17.3)
[2022-01-03 05:49] LABS: Calcium 8.3 MG/DL (8.5-10.1)
[2022-01-03 06:14] LABS: Eosinophils 4 % (0-10); Hypochromia 1+; Lymphocytes 37 % (20-55); Microcytosis 1+; Ovalocytes Slight; Platelet Estimate Adequate; Segmented Neutrophils 46 % (50-85); Total Cells Counted 100
[2022-01-03] MEDS: INSULIN LISPRO 100 UNIT/ML SUBCUT SCH ×2 (08:16→11:13)
[2022-01-03] MEDS: CINACALCET 30 MG TABLET PO SCH (08:46)
[2022-01-03] MEDS: FERROUS SULFATE 325 MG TABLET PO SCH (08:46)
[2022-01-03] MEDS: BICALUTAMIDE 50 MG TABLET PO SCH (08:46)
[2022-01-03] MEDS: GABAPENTIN 300 MG CAPSULE PO SCH (08:46)
[2022-01-03] MEDS: hydrALAZINE 25 MG TABLET PO SCH (08:46)
[2022-01-03] MEDS: TICAGRELOR 90 MG TABLET PO SCH (08:46)
[2022-01-03] MEDS: ASPIRIN CHEW 81 MG TABLET PO SCH (08:46)
[2022-01-03] MEDS: carvediloL 25 MG TABLET PO SCH (08:47)
[2022-01-03] MEDS: ISOSORBIDE DINITRATE 10 MG TABLET PO SCH (08:47)
[2022-01-03] MEDS: amLODIPine 10 MG TABLET PO SCH (08:47)
[2022-01-03] MEDS: FOLIC ACID 1 MG TABLET PO SCH (08:47)
[2022-01-03] MEDS: busPIRone 10 MG TABLET PO SCH (08:47)
[2022-01-03] MEDS: levETIRAcetam 500 MG TABLET PO SCH (08:47)
[2022-01-03] MEDS: CHOLECALCIFEROL 5,000 UNIT TABLET PO SCH (08:47)
[2022-01-03] MEDS: TAMSULOSIN 0.4 MG CAPSULE PO SCH (08:47)
[2022-01-03] MEDS: HEPARIN 5,000 UNIT/1 ML VIAL SUBCUT SCH (11:13)
== END 2022-01-03 13:30 | disposition home or self-care (01) | DRG 208 ==
LOC: EDUNIT# → EDBD → N.ED 08:16 → SUATTDRO 10:02 → N.CC 10:02
PROVIDERS: ADMIT Family Medicine; ATTEND Internal Medicine

== ENCOUNTER 2022-01-09 03:17 | Inpatient (IN) ==
[2022-01-09] MEDS: NITROGLYCERIN DRIP 50 MG/250 ML BOTTLE IV PRN ×2 (04:42→15:50)
[2022-01-09] MEDS ORDERED: DEXTROSE 50% 25 GM/50 ML SYRINGE IV ONE ×2 (05:12→05:15)
[2022-01-09] MEDS ORDERED: ALBUTEROL 2.5 MG/3 ML NEB RESP TX PRN (05:15)
[2022-01-09] MEDS ORDERED: ONDANSETRON 4 MG/2 ML VIAL IV PRN (05:17)
[2022-01-09] MEDS ORDERED: DEXTROSE 10% 250 ML BAG IV PRN (05:26)
[2022-01-09] MEDS ORDERED: GLUCAGON 1 MG VIAL IM PRN (05:26)
[2022-01-09] MEDS: MORPHINE 2 MG/1 ML SYRINGE IV PRN ×3 (05:47→21:45)
[2022-01-09 05:52] LABS: ABG HCO3 27.5 MMOL/L (20-26); ABG PCO2 36.9 MM HG (35-48); ABG PO2 77.2 MM HG (80-95); ABG TCO2 28.6 MMOL/L (23-27)
[2022-01-09] MEDS ORDERED: DEXTROSE 50% 25 GM/50 ML VIAL IV PRN (06:32)
[2022-01-09 07:07] LABS: Basophils # 0.1 10*3/uL (0.0-0.2); Basophils % 0.4 % (0.0-0.8); Eosinophils # 0.1 10*3/uL (0.0-0.87); Eosinophils % 0.5 % (0.00-10.9); Hematocrit 29.7 VOL% (42.0-52.0); Hemoglobin 9.1 GM/DL (14.0-18.0); Immature Granulocytes % 0.6 %; Immature Granulocytes Absolute 0.09 #; Lymphocytes # 1.2 10*3/uL (1.4-4.0); Lymphocytes % 8.1 % (21.2-54.2); Mean Corpuscular HGB Conc 30.6 GM/DL (32-36); Mean Corpuscular Volume 95.2 FL (87-102); Mean Platelet Volume 12.1 FL (9.6-12.0); Monocytes % 5.2 % (1.7-12.7); Neutrophils % 85.2 % (38.7-73.9); Platelet Count 152 T/CUMM (130-400); Red Blood Count 3.12 MC/CUMM (3.8-5.5); Red Cell Distribution Width 18.4 % (9.3-17.3); White Blood Count 14.6 T/CUMM (4-12)
[2022-01-09 07:29] LABS: Lymphocytes 13 % (20-55); Platelet Estimate Adequate; Segmented Neutrophils 80 % (50-85); Total Cells Counted 100
[2022-01-09 07:30] LABS: Hypochromia Slight; Microcytosis Slight; Ovalocytes Slight
[2022-01-09] MEDS ORDERED: INSULIN REGULAR 100 UNIT/ML SUBCUT SCH (07:30)
[2022-01-09] MEDS: ISOSORBIDE DINITRATE 10 MG TABLET PO SCH ×3 (07:40→20:25)
[2022-01-09] MEDS: carvediloL 25 MG TABLET PO SCH ×3 (07:40→20:25)
[2022-01-09] MEDS: amLODIPine 10 MG TABLET PO SCH ×2 (07:40→09:05)
[2022-01-09 07:42] LABS: Alanine Aminotransferase 20 U/L (16-61); Albumin 2.6 G/DL (3.4-5.0); Alkaline Phosphatase 102 U/L (45-117); Aspartate Amino Transferase 26 U/L (0-37); Bilirubin,Total < 0.39 MG/DL (0.20-1.00); Blood Urea Nitrogen 29 MG/DL (7-18); Calcium 9.2 MG/DL (8.5-10.1); Carbon Dioxide 28 MMOL/L (21-32); Estimated Glom Filtration Rate 7 ML/MIN; Glucose 67 MG/DL (74-106); Osmolality,Calculated 271.2 MOS/KG (273-304); Potassium 4.6 MMOL/L (3.5-5.1); Sodium 134 MMOL/L (136-145)
[2022-01-09] MEDS: ALBUTEROL/IPRATROPIUM 3 ML NEB RESP TX SCH ×3 (07:43→19:30)
[2022-01-09] MEDS ORDERED: HYDROCORTISONE 100 MG VIAL IV ONE (08:11)
[2022-01-09] MEDS: INSULIN REGULAR 100 UNIT/ML SUBCUT SCH ×2 (11:30→17:54)
[2022-01-09] MEDS: GABAPENTIN 300 MG CAPSULE PO SCH ×2 (17:50→20:25)
[2022-01-10] MEDS: ALBUTEROL/IPRATROPIUM 3 ML NEB RESP TX SCH ×4 (01:00→19:17)
[2022-01-10] MEDS: INSULIN REGULAR 100 UNIT/ML SUBCUT SCH ×5 (01:07→20:42)
[2022-01-10] MEDS: MORPHINE 2 MG/1 ML SYRINGE IV PRN ×2 (02:02→08:33)
[2022-01-10 04:26] LABS: Basophils % 0.5 % (0.0-0.8); Eosinophils # 0.1 10*3/uL (0.0-0.87); Eosinophils % 1.5 % (0.00-10.9); Hematocrit 24.4 VOL% (42.0-52.0); Hemoglobin 7.8 GM/DL (14.0-18.0); Immature Granulocytes % 0.4 %; Immature Granulocytes Absolute 0.03 #; Lymphocytes # 1.8 10*3/uL (1.4-4.0); Lymphocytes % 23.4 % (21.2-54.2); Mean Corpuscular Volume 90.7 FL (87-102); Mean Platelet Volume 12.1 FL (9.6-12.0); Monocytes % 7.6 % (1.7-12.7); Neutrophils % 66.6 % (38.7-73.9); Platelet Count 187 T/CUMM (130-400); Red Blood Count 2.69 MC/CUMM (3.8-5.5); White Blood Count 7.9 T/CUMM (4-12)
[2022-01-10 04:47] LABS: Osmolality,Calculated 275.8 MOS/KG (273-304); Potassium 4.5 MMOL/L (3.5-5.1)
[2022-01-10] MEDS: amLODIPine 10 MG TABLET PO SCH (08:29)
[2022-01-10] MEDS: ISOSORBIDE DINITRATE 10 MG TABLET PO SCH ×2 (08:30→20:42)
[2022-01-10] MEDS: GABAPENTIN 300 MG CAPSULE PO SCH ×2 (08:31→20:42)
[2022-01-10] MEDS: carvediloL 25 MG TABLET PO SCH ×2 (08:31→20:42)
[2022-01-11] MEDS: ALBUTEROL/IPRATROPIUM 3 ML NEB RESP TX SCH ×4 (01:10→19:06)
[2022-01-11 04:20] LABS: Basophils # 0.1 10*3/uL (0.0-0.2); Eosinophils # 0.3 10*3/uL (0.0-0.87); Hemoglobin 8.1 GM/DL (14.0-18.0); Immature Granulocytes % 0.2 %; Immature Granulocytes Absolute 0.01 #; Lymphocytes # 1.8 10*3/uL (1.4-4.0); Lymphocytes % 28.5 % (21.2-54.2); Mean Corpuscular HGB Conc 31.2 GM/DL (32-36); Mean Corpuscular Volume 91.5 FL (87-102); Mean Platelet Volume 12.1 FL (9.6-12.0); Monocytes % 8.4 % (1.7-12.7); Neutrophils % 57.9 % (38.7-73.9); Platelet Count 194 T/CUMM (130-400); Red Blood Count 2.84 MC/CUMM (3.8-5.5); Red Cell Distribution Width 17.9 % (9.3-17.3); White Blood Count 6.3 T/CUMM (4-12)
[2022-01-11 04:38] LABS: Calcium 8.8 MG/DL (8.5-10.1); Osmolality,Calculated 277.2 MOS/KG (273-304)
[2022-01-11] MEDS: carvediloL 25 MG TABLET PO SCH ×2 (08:08→21:23)
[2022-01-11] MEDS: amLODIPine 10 MG TABLET PO SCH (08:08)
[2022-01-11] MEDS: ISOSORBIDE DINITRATE 10 MG TABLET PO SCH ×2 (08:08→21:23)
[2022-01-11] MEDS: INSULIN REGULAR 100 UNIT/ML SUBCUT SCH ×4 (08:08→21:40)
[2022-01-11] MEDS: GABAPENTIN 300 MG CAPSULE PO SCH ×2 (08:08→21:23)
[2022-01-11] MEDS: hydrALAZINE 25 MG TABLET PO SCH ×3 (08:11→21:23)
[2022-01-11] MEDS: levETIRAcetam 500 MG TABLET PO SCH ×2 (09:29→21:23)
[2022-01-11] MEDS: LEVOFLOXACIN INJ 500 MG/100 ML PREMIX IV SCH (11:17)
[2022-01-12] MEDS: ALBUTEROL/IPRATROPIUM 3 ML NEB RESP TX SCH ×4 (01:45→19:10)
[2022-01-12 05:38] LABS: Basophils # 0.1 10*3/uL (0.0-0.2); Eosinophils # 0.3 10*3/uL (0.0-0.87); Hematocrit 24.4 VOL% (42.0-52.0); Hemoglobin 7.8 GM/DL (14.0-18.0); Immature Granulocytes % 0.3 %; Immature Granulocytes Absolute 0.02 #; Lymphocytes # 1.5 10*3/uL (1.4-4.0); Lymphocytes % 24.4 % (21.2-54.2); Mean Corpuscular Volume 90.4 FL (87-102); Mean Platelet Volume 11.5 FL (9.6-12.0); Monocytes % 8.9 % (1.7-12.7); Neutrophils % 60.4 % (38.7-73.9); Platelet Count 175 T/CUMM (130-400); Red Cell Distribution Width 18.1 % (9.3-17.3); White Blood Count 6.2 T/CUMM (4-12)
[2022-01-12 05:54] LABS: Calcium 9.2 MG/DL (8.5-10.1); Osmolality,Calculated 272.9 MOS/KG (273-304); Potassium 5.7 MMOL/L (3.5-5.1)
[2022-01-12] MEDS: INSULIN REGULAR 100 UNIT/ML SUBCUT SCH ×4 (07:41→22:06)
[2022-01-12] MEDS: ISOSORBIDE DINITRATE 10 MG TABLET PO SCH ×2 (08:02→22:07)
[2022-01-12] MEDS: carvediloL 25 MG TABLET PO SCH ×2 (08:02→17:53)
[2022-01-12] MEDS: amLODIPine 10 MG TABLET PO SCH (08:02)
[2022-01-12] MEDS: levETIRAcetam 500 MG TABLET PO SCH ×2 (08:03→22:07)
[2022-01-12] MEDS ORDERED: MELATONIN 3 MG TABLET PO PRN (15:48)
[2022-01-12] MEDS: GABAPENTIN 300 MG CAPSULE PO SCH (22:07)
[2022-01-13] MEDS: ALBUTEROL/IPRATROPIUM 3 ML NEB RESP TX SCH ×3 (01:05→13:00)
[2022-01-13 06:09] LABS: Basophils % 0.9 % (0.0-0.8); Eosinophils # 0.2 10*3/uL (0.0-0.87); Eosinophils % 4.7 % (0.00-10.9); Hematocrit 23.2 VOL% (42.0-52.0); Hemoglobin 7.4 GM/DL (14.0-18.0); Immature Granulocytes % 0.4 %; Immature Granulocytes Absolute 0.02 #; Lymphocytes # 1.2 10*3/uL (1.4-4.0); Lymphocytes % 24.8 % (21.2-54.2); Mean Corpuscular HGB Conc 31.9 GM/DL (32-36); Mean Corpuscular Volume 90.6 FL (87-102); Mean Platelet Volume 12.1 FL (9.6-12.0); Monocytes % 8.8 % (1.7-12.7); Neutrophils % 60.4 % (38.7-73.9); Platelet Count 164 T/CUMM (130-400); Red Blood Count 2.56 MC/CUMM (3.8-5.5); Red Cell Distribution Width 18.4 % (9.3-17.3); White Blood Count 4.7 T/CUMM (4-12)
[2022-01-13 06:29] LABS: Calcium 8.9 MG/DL (8.5-10.1); Osmolality,Calculated 276.1 MOS/KG (273-304); Potassium 4.8 MMOL/L (3.5-5.1)
[2022-01-13 08:11] VITALS: BP 151/63
[2022-01-13] MEDS: INSULIN REGULAR 100 UNIT/ML SUBCUT SCH ×2 (08:19→12:25)
[2022-01-13] MEDS: carvediloL 25 MG TABLET PO SCH (10:13)
[2022-01-13] MEDS: ISOSORBIDE DINITRATE 10 MG TABLET PO SCH (10:18)
[2022-01-13] MEDS: levETIRAcetam 500 MG TABLET PO SCH (10:20)
[2022-01-13] MEDS: amLODIPine 10 MG TABLET PO SCH (10:21)
[2022-01-13] MEDS: LEVOFLOXACIN INJ 500 MG/100 ML PREMIX IV SCH (10:56)
== END 2022-01-13 13:35 | disposition home or self-care (01) | DRG 291 ==
LOC: N.ICU 05:02 → SUATTDRO 05:02 → N.3E 01-12 01:58
PROVIDERS: ADMIT Internal Medicine; ATTEND Hospitalist